=== PATIENT | female | born 1970 | race Caucasian/White ===

== ENCOUNTER → 2017-08-06 | Outpatient (CLI) | payer OTHER, SELFPAY | PROVIDERS: Visit Provider Surgery | DX: R10.11 Right upper quadrant pain (principal); K82.9 Disease of gallbladder, unspecified; Z01.818 Encounter for other preprocedural examination | CPT/HCPCS: 74247 ==

== ENCOUNTER 2017-08-13 09:07 | Day surgery (SDC) | payer OTHER, SELFPAY | END 2017-08-13 14:52 | disposition home or self-care (01) | PROVIDERS: Family Provider Internal Medicine Adolescent Medicine; Visit Provider Surgery | DX: K81.1 Chronic cholecystitis (principal) | CPT/HCPCS: 47562; 82962; 96375; J2405 ==

== ENCOUNTER → 2017-12-27 13:48 | Outpatient (CLI) | payer OTHER, SELFPAY ==
--- NOTE | 2017-12-27 | XR_ITS ---
XR foot RT min 3V HISTORY: Pain following injury ITS.REASON: FALL..PAIN TO 3RD TARSAL ORDERING PHYSICIAN: Zeina Reyez MD PATIENT AGE: 47 years COMPARISON: None FINDINGS: No fracture or dislocation. No lytic or blastic change. There is normal mineralization.. The joint spaces are well-preserved. No significant degenerative/arthritic changes. No erosive changes evident. IMPRESSION: Negative, no acute finding
== END ==
PROVIDERS: PCP Family Medicine; Visit Provider Family Medicine
DX: M79.671 Pain in right foot (principal)
CPT/HCPCS: 73630

== ENCOUNTER → 2018-09-09 08:32 | Outpatient (CLI) | payer OTHER, SELFPAY ==
[2018-09-09 09:00] LABS: Blood Urea Nitrogen 15 mg/dL (7-18); Creatinine,Serum 0.76 mg/dL (0.55-1.02); Estimated Glomerular Filt Rate 82 ml/min (>60); GFR (African American) 99 ML/MIN (>60)
--- NOTE | 2018-09-09 09:45 | CT_ITS ---
CT abdomen wo/w con CLINICAL INDICATION: Right upper quadrant pain, elevated pancreatic enzymes, follow-up renal cysts ITS.REASON: RUQ PAIN ORDERING PHYSICIAN: Zeina Reyez MD PATIENT AGE: 48 years COMPARISON: 5 and 417 TECHNIQUE: Axial images obtained with sagittal and coronal reformats. Pre and post contrast enhanced images are obtained. Post enhanced images are obtained at 30 seconds, 60 seconds, and [address] scans at the facility use one or more dose reduction, viz: automated exposure control, ma/kV adjustment per patient size (including targeted exams where dose is matched to indication, i.e. head), or iterative reconstruction technique. PROCEDURE: Oral Contrast: None IV Contrast: 75 mL of Isovue-370. FINDINGS: There are mild atelectatic changes in the lung bases. Prior cholecystectomy. The liver, spleen, and adrenal glands have an unremarkable appearance. No pancreatic mass or peripancreatic fluid collection is evident. No pancreatic duct dilatation. There are bilateral renal cysts measuring up to 6 cm in the lower pole on the right and 4 cm in the upper pole on the left. The cysts have increased in size compared to the previous study. Previously the largest cyst on the right was 4.9 cm cm and the largest cyst on the left was 2 cm. No hydronephrosis. No renal calculi. The pelvis is not included in the exam. Sclerosis of the SI joints on both sides IMPRESSION: 1. Unremarkable appearing pancreas. 2. Bilateral renal cysts which have slightly increased in size 3. No acute finding
--- NOTE | 2018-09-09 10:13 | HMH.ITSHM ---
Current Home Medications as stated by this patient Arlen Zavala or outside energy sales representatives. []LISINOPRIL,VICTOZA,AMLODIPINE,METFORMIN
== END ==
PROVIDERS: Visit Provider Family Medicine
DX: R10.11 Right upper quadrant pain (principal)
CPT/HCPCS: 36415; 74170; 82565; 84520; Q9967

== ENCOUNTER → 2019-01-10 08:28 | Outpatient (CLI) | payer OTHER, SELFPAY ==
--- NOTE | 2019-01-10 08:32 | MM_ITS ---
MM Dig screening mamm BI w/CAD CAD Screening COMPARISON: Digital mammograms with CAD 06/21/2017 INDICATION: There is no personal or family history of breast cancer TECHNIQUE: Standard CC and MLO images were obtained. R2 CAD reviewed. FINDINGS: There is a diffusely dense and heterogenic parenchymal pattern lessening the sensitivity of mammography. There are scattered benign-appearing microcalcifications in each breast. There is a stable benign-appearing nodular density deep within the right breast. There is no suspicious lesion and there are no suspicious microcalcifications. IMPRESSION: Dense parenchymal pattern with no suspicious lesion seen BI-RADS Category: 2 Benign Finding(s) RECOMMENDED FOLLOW-UP: 1YR - 1 YEAR FOLLOW-UP (A letter has been sent to the patient regarding results of the study.)
== END ==
PROVIDERS: PCP Family Medicine; Visit Provider Family Medicine
DX: Z12.31 Encounter for screening mammogram for malignant neoplasm of breast (principal); N60.19 Diffuse cystic mastopathy of unspecified breast
CPT/HCPCS: 77067

== ENCOUNTER → 2020-02-20 10:04 | Outpatient (CLI) | payer OTHER, SELFPAY ==
--- NOTE | 2020-02-20 10:09 | MM_ITS ---
PROCEDURE: MM DIG SCREENING MAMM BI W/CAD Digital Breast Tomosynthesis Included CLINICAL INDICATION: SCREENING There is no personal or family history of breast cancer COMPARISON: [id number] DIG MAMM-DX UNI A/VW-RT W/CAD from 12/16/2016 DMDB DIG MAMM-DX OSVALDO W/CAD from 06/21/2017 DIG MAMM-SCREEN OSVALDO from 01/10/2019 TECHNIQUE: Standard CC and MLO images and 3D Tomosynthesis was obtained. R2 CAD reviewed. FINDINGS: Moderate diffuse heterogenic fibroglandular densities are seen in the central portions of both breast. There is a mole marker near the axilla right breast. There are couple of benign-appearing microcalcifications in each breast. There is a stable benign-appearing nodular density deep within the right breast. There also is a stable nodular density near the axillary tail left breast likely a low-lying node. There is no new or suspicious lesion in either breast and no suspicious microcalcifications. IMPRESSION: Moderate heterogenic breast density with no suspicious lesions seen BI-RAD Category: 2 Benign Finding(s) FOLLOW-UP: 1YR 1 Year Follow-up (A letter has been sent to the patient regarding results of the study.) Dictated by: Dr. Jeffry Wesley MD 02/24/2020 12:[address] Jeffry Wesley MD in [place] 02/24/2020 12:39
== END ==
PROVIDERS: PCP Family Medicine; Visit Provider Family Medicine
DX: Z12.31 Encounter for screening mammogram for malignant neoplasm of breast (principal)
CPT/HCPCS: 77063; 77067

== ENCOUNTER 2020-06-01 12:57 | Emergency (ER) | payer OTHER, SELFPAY ==
[2020-06-01 13:19] VITALS: BP 143/99; PULSE 82; RESP 19; TEMP 37.3; O2SAT 98; BMI 31.4
--- NOTE | 2020-06-01 13:46 | HMH.EDUTC ---
[facility] [place] Clinical Impression: Viral syndrome Disposition: Home, Self-Care Condition on Discharge: Good Instructions: DI for Viral Upper Respiratory Infection -- Adult, Preventing the Spread of Coronavirus Discharge Instructions Additional Instructions: *Monitor Temp, Over the counter Motrin or Tylenol as directed/as needed Tylenol every 4 hours and Motrin every 6 hours (as long as your family doctor has told you that you can take it) for fever or pain. and straight to ER if unable to lower temp less than 101.0 after medication given *Warm salt water gargles may help to soothe the throat *Throat Lozenges *Warm fluids like tea with honey may help to soothe the throat *Sleep elevated *Humidifier/Vaporizer Follow up IMMEDIATELY for new or worsening symptoms or no Noticeable improvement over the next 48-72 hours. 911 for difficulty breathing or swallowing You was tested for today for COVID19 your test result should be back in the next 24-48 hours, you may call back later tomorrow evening to see if your test results are back and the result You was given a handout with instructions for Self Quarantine and Self isolation for while you wait on test results and what to do if they are positive Referrals: Zeina Reyez MD [Primary Care Provider] - As needed Time of Disposition: 13:52 Medical Decision Making - Rodney Inquiry Pt receiving controlled substance: No Rodney was queried for this patient: No Vital Signs: 06/01/20 13:19 Temperature 99.2 F Temperature Source Oral Pulse Rate [Radial] 82 Respiratory Rate 19 Blood Pressure [Right Arm] 143/99 H Blood Pressure Mean [Right Arm] 113 Blood Pressure Source [Right Arm] Automatic Cuff Blood Pressure Position [Right Arm] Sitting 02 Sat by Pulse Oximetry 98 Oxygen Delivery Method Room Air Orders (Tests/Meds): ORDERS Category Date Time Status Covid-19 Nasal PCR Sendout [facility] 06/01/20 13:45 Received [facility] - General Stated complaint: weakness,Headache,muscle pain,Diarrhea,abdpain Time Seen by Provider: 06/01/20 13:46 Mode of Arrival: Ambulatory Source of Information: Patient Limitations: No Limitations Description of Symptoms (Recalled from Triage Doc. by RN): BODY ACHES, FEVER HEADACHE, SINCE WEDNESDAY HEENT Symptoms (Recalled from RN notes): Yes Resp Symptoms (Recalled from RN notes): No Skin Symptoms (Recalled from RN notes): No MS Symptoms (Recalled from RN notes): No Functional Status (Recalled from RN notes): WNL - History of Present Illness Provider Complaint: Patient states that over the last week she has been having body aches, chills low grade fever, clear nasal drainage States that she feels like she may have the flu States that she was concerned she may have been exposed to COVID but unsure States that today she was still feeling bad so she come in to get tested States that she is not having any abdominal pain but did have some cramping when she had diarrhea yesterday - Related Data Home Medications Medication Instructions Recorded Confirmed amlodipine 5 mg tablet 5 mg PO DAILY 09/15/18 09/18/19 atorvastatin 20 mg tablet 20 mg PO DAILY 09/15/18 09/18/19 fluticasone 250 mcg-salmeterol 50 1 inh INHALATION BID 09/15/18 09/18/19 mcg/dose blistr powdr for inhalation liraglutide 0.6 mg/0.1 mL (18 mg/3 1.2 mg SQ DAILY ml 09/15/18 09/18/19 mL) subcutaneous pen injector lisinopril 20 1 tab PO DAILY 09/15/18 09/18/19 mg-hydrochlorothiazide 25 mg tablet metformin 500 mg tablet 500 mg PO BID 09/15/18 09/18/19 albuterol sulfate 90 mcg/actuation INHALATION 09/18/19 09/18/19 aerosol inhaler lisinopril 40 mg tablet PO 09/18/19 09/18/19 pen needle, diabetic 31 gauge x See Rx Instructions .ROUTE 09/18/19 09/18/1916 .MEDSUPPLY #1,200 each Previous Rx's Medication Instructions Recorded Ondansetron [Ondansetron Odt 8mg 8 mg PO TID PRN 10 Days #30 tab 09/22/19 Tab] Allergies Allergy/AdvReac Type Amalia
[2020-06-01 14:03] VITALS: BP 143/99; PULSE 82; RESP 19; TEMP 37.3; O2SAT 98
[2020-06-01 14:22] LABS: UTC Influenza A Antigen Negative (Negative)
[2020-06-01 14:24] LABS: UTC Influenza B Antigen Negative (Negative)
[2020-06-02 09:34] LABS: Covid-19 Nasal PCR Sendout UK Detected
--- NOTE | 2020-06-02 09:39 | PC.NURSE ---
Patient notified of positive COVID results. Educated on strict quarantine.
== END 2020-06-01 14:04 | disposition home or self-care (01) ==
PROVIDERS: Emergency Provider Nurse Practitioner; PCP Family Medicine
DX: U07.1 COVID-19 (principal); B34.9 Viral infection, unspecified; E11.9 Type 2 diabetes mellitus without complications; I10 Essential (primary) hypertension; E78.5 Hyperlipidemia, unspecified; J45.909 Unspecified asthma, uncomplicated; Z79.899 Other long term (current) drug therapy; Z90.49 Acquired absence of other specified parts of digestive tract; Z90.710 Acquired absence of both cervix and uterus
CPT/HCPCS: 87804; 99201; U0003

== ENCOUNTER → 2020-08-06 14:35 | Outpatient (CLI) | payer OTHER, SELFPAY ==
--- NOTE | 2020-08-06 14:39 | US_ITS ---
PROCEDURE: US KIDNEY CLINICAL INDICATION: RENAL CYST COMPARISON: No exams were available for comparison FINDINGS: The right kidney is [id number]. No hydronephrosis, cortical thinning, or renal mass or perinephric fluid collection is evident. The left kidney is [id number]. No hydronephrosis, cortical thinning, or renal mass or perinephric fluid collection is evident. There are bilateral renal cyst. At least 3 cysts on the right the largest measuring 5 cm. This is in the mid upper pole. Additional cyst in the upper pole at 2 cm and a cyst in the lower pole at 2 cm. On the left there is a 4.9 cm cyst in the upper pole. IMPRESSION: Bilateral renal cysts. No hydronephrosis Dictated by: Waqas Mcelroy MD 08/06/2020 17:17 Waqas Mcelroy MD in [place] 08/06/2020 17:17
== END ==
PROVIDERS: PCP Family Medicine; Visit Provider Family Medicine
DX: N28.1 Cyst of kidney, acquired (principal)
CPT/HCPCS: 76770

== ENCOUNTER → 2021-03-14 16:04 | Outpatient (CLI) | payer OTHER, SELFPAY ==
--- NOTE | 2021-03-14 16:06 | MM_ITS ---
PROCEDURE: MM DIG SCREENING MAMM BI W/CAD Digital Breast Tomosynthesis Included CLINICAL INDICATION: SCREENING The COMPARISON: US BR US BREAST-RT COMPLETE W/AXILLA from 12/16/2016 MG DMDB DIG MAMM-DX OSVALDO W/CAD from 06/21/2017 MG DIG MAMM-SCREEN OSVALDO from 01/10/2019 MG MM DIG SCREENING MAMM BI W/CAD from 02/20/2020 TECHNIQUE: Standard CC and MLO images and 3D Tomosynthesis was obtained. R2 CAD reviewed. FINDINGS: Average fibroglandular tissue. No malignant appearing mass or malignant-appearing microcalcification. No skin skin thickening or architectural distortion. There are bilateral benign-appearing calcifications in scattered asymmetric fibroglandular elements. No significant change IMPRESSION: Benign findings BI-RAD Category: 2 Benign Finding FOLLOW-UP: 1 YR 1 Year Follow-up (A letter has been sent to the patient regarding results of the study.) Dictated by: Waqas Mcelroy MD 03/21/2021 18:12 Waqas Mcelroy MD in [place] 03/21/2021 18:12
== END ==
PROVIDERS: PCP Family Medicine; Visit Provider Family Medicine
DX: Z12.31 Encounter for screening mammogram for malignant neoplasm of breast (principal)
CPT/HCPCS: 77063; 77067

== ENCOUNTER → 2021-09-01 14:51 | Outpatient (CLI) | payer OTHER, SELFPAY ==
--- NOTE | 2021-09-01 14:56 | XR_ITS ---
FINAL REPORT CLINICAL HISTORY: CONTUSION OF RT CHEST WALL, INITIAL ENCOUNTER COMPARISON: July 23, 2017 FINDINGS: Two views of the chest were obtained. The heart size and pulmonary vascularity are within normal limits. The mediastinum is normal. There is mild bibasilar atelectasis or scarring. There is no pneumothorax. The bony thorax is intact. IMPRESSION: Mild bibasilar atelectasis or scarring. Reviewed, Interpreted and Dictated by Paul Mckinnon III, MD Transcribed by Medhat Mahoney Authenticated by Paul Mckinnon III, MD on 09/01/2021 04:14:04 PM [facility]
--- NOTE | 2021-09-01 14:56 | XR_ITS ---
FINAL REPORT CLINICAL HISTORY: CONTUSION OF RT CHEST WALL, INITIAL ENCOUNTER FINDINGS: 3 views of the right ribs were obtained. There is no acute fracture. The visualized lungs are clear. No pneumothorax is identified. IMPRESSION: No rib fracture or pneumothorax identified. Reviewed, Interpreted and Dictated by Paul Mckinnon III, MD Transcribed by Medhat Mahoney Authenticated by Paul Mckinnon III, MD on 09/01/2021 04:14:02 PM [facility]
== END ==
PROVIDERS: PCP Family Medicine; Visit Provider Family Medicine
DX: S20.211A Contusion of right front wall of thorax, initial encounter (principal)
CPT/HCPCS: 71046; 71100

== ENCOUNTER → 2022-04-04 11:26 | Outpatient (CLI) | payer OTHER, SELFPAY ==
[2022-04-03 19:11] LABS: Anion Gap 14.7 mEq/L (5-15); Blood Urea Nitrogen 19 mg/dl (7-17); Carbon Dioxide 26 mmol/L (22.0-30.0); Chloride 101 mmol/L (98-107); Estimated Glomerular Filt Rate 106 ml/min (>60); GFR (African American) 129 ML/MIN (>60); Glucose 173 mg/dl (74-100); Potassium 3.7 mmoL/L (3.5-5.1); Sodium 138 mmol/L (136-145)
[2022-04-03 19:42] LABS: Thyroid Stimulating Hormone 0.46 uIU/mL (0.465-4.68)
[2022-04-03 21:51] LABS: Basophils # 0.2 K/mm3 (0-0.2); Basophils % 2.2 % (0.1-2.0); Eosinophils # 0.3 K/mm3 (0.0-0.4); Eosinophils % 4.2 % (0.1-12.0); Hematocrit 46.1 % (37.0-47.0); Hemoglobin 14.5 g/dL (12.2-16.2); Lymphocytes # 1.6 K/mm3 (0.7-4.5); Lymphocytes % 20.8 % (10-50); Mean Corpuscular HGB Conc 31.5 g/dL (31.8-35.4); Mean Corpuscular Hemoglobin 29.3 pg (27.0-31.2); Mean Platelet Volume 10.4 fl (7.4-10.4); Monocytes # 0.6 K/mm3 (0.1-1.0); Monocytes % 7.5 % (1.7-9.3); Neutrophils % 65.4 % (37.0-80.0); Platelet Count 341 K/mm3 (142-424); Red Blood Count 4.95 M/mm3 (4.20-5.40); Red Cell Distribution Width 13.4 % (11.5-17.5); White Blood Count 7.7 K/mm3 (4.8-10.8)
== END ==
LOC: LAB.DROPOF 11:30
PROVIDERS: PCP Family Medicine; Visit Provider Family Medicine
DX: E11.9 Type 2 diabetes mellitus without complications (principal); Z79.84 Long term (current) use of oral hypoglycemic drugs
CPT/HCPCS: 80048; 84443; 85025

== ENCOUNTER → 2022-04-16 08:06 | Outpatient (CLI) | payer OTHER, SELFPAY ==
--- NOTE | 2022-04-16 08:07 | MM_ITS ---
PROCEDURE INFORMATION: Exam: MG Bilateral Screening 3D Mammography Exam date and time: 04/16/2022 8:13 AM Age: 51 years old Clinical indication: Screening examination TECHNIQUE: Imaging protocol: Bilateral Screening tomosynthesis and 2D mammography including computer-aided detection (CAD) when performed. COMPARISON: 1. MG MM DIG SCREENING MAMM BI W/CAD 03/14/2021 4:03 PM 2. MG MM DIG SCREENING MAMM BI W/CAD 02/20/2020 10:28 AM FINDINGS: MAMMOGRAPHY: Breast composition: The breasts are heterogeneously dense, which may obscure small masses. Mass: None. Architectural distortion: None. Calcifications: No suspicious calcifications. Asymmetric density: None. Skin thickening: None. Axillary adenopathy: None. IMPRESSION: No mammographic evidence of malignancy. Annual screening is recommended unless otherwise clinically indicated. ASSESSMENT: BI-RADS Category 1: Negative
== END ==
PROVIDERS: PCP Family Medicine; Visit Provider Family Medicine
DX: Z12.31 Encounter for screening mammogram for malignant neoplasm of breast (principal)
CPT/HCPCS: 77063; 77067

== ENCOUNTER 2022-06-01 11:21 | Emergency (ER) | payer OTHER, SELFPAY ==
[2022-06-01 12:07] VITALS: BP 162/98; PULSE 69; RESP 16; TEMP 36.9; O2SAT 99; BMI 33.2
--- NOTE | 2022-06-01 12:11 | EXP.UTC ---
Discharge Plan Disposition Patient Disposition: Hospice - Medical Facility Condition: Good Prescriptions Prescriptions: New doxycycline monohydrate [doxycycline monohydrate] 100 mg tablet 100 mg PO Q12 10 Days Qty: 20 0RF mupirocin 2 % ointment 1 applic topical TID 7 Days Qty: 1 0RF No Action (DME) pen needle, diabetic 31 gauge x 5/16 needle See Rx Instructions .ROUTE .MEDSUPPLY Qty: 1,200 Rx Instructions: As directed albuterol sulfate 90 mcg/actuation HFA aerosol inhaler INHALATION Jardiance 10 mg tablet 10 mg PO DAILY Victoza 2-Drake 0.6 mg/0.1 mL (18 mg/3 mL) pen injector 1.2 mg SQ DAILY Qty: 6 2RF metformin 500 mg tablet 500 mg PO BID lisinopril-hydrochlorothiazide 20-25 mg tablet 1 tab PO DAILY atorvastatin 20 mg tablet 20 mg PO DAILY Advair Diskus 250-50 mcg/dose blister with device 1 inh INHALATION BID Referrals Follow up/Referrals: Zeina Reyez MD [Primary Care Provider] - See instructions Activity Restrictions/Add. Instructions Additional Instructions/Restrictions: Keep the wound clean and dry. Watch the for signs of infection, such as redness, swelling, drainage, fever. etc. Take tylenol or ibuprofen for pain. Follow up with your regular doctor. GO TO THE ER FOR ANY WORSENING SYMPTOMS OR CONCERNS. Clinical Impressions Clinical Impression: Tick bite of back Instructions Patient Instructions: DI for Cellulitis -- Adult Discharge ED Provider: Yrn Escalera [facility] General Stated complaint: tick imbedded in back few days ago Mode of Arrival: Ambulatory Source of Information: Patient Limitations: No Limitations Time Seen by Provider: 06/01/22 12:10 HEENT Symptoms (Recalled from RN notes): No Resp Symptoms (Recalled from RN notes): No Skin Symptoms (Recalled from RN notes): Yes MS Symptoms (Recalled from RN notes): No Functional Status (Recalled from RN notes): n/a History of Present Illness Provider Complaint: She comes in for tick head removal. She states she does not know when she was bitten, but this morning her noticed it and tried to remove it, but pt states she thinks that the head is stuck Related Data Home Medications Medication Instructions Recorded Confirmed atorvastatin 20 mg tablet 20 mg PO DAILY 09/15/18 05/19/22 fluticasone 250 mcg-salmeterol 50 1 inh inhalation BID 09/15/18 05/19/22 mcg/dose blistr powdr for inhalation (Advair Diskus) lisinopril 20 1 tab PO DAILY 09/15/18 05/19/22 mg-hydrochlorothiazide 25 mg tablet metformin 500 mg tablet 500 mg PO BID 09/15/18 05/19/22 albuterol sulfate 90 mcg/actuation inhalation 09/18/19 05/19/22 aerosol inhaler pen needle, diabetic 31 gauge x #1,200 ea 09/18/19 05/19/22 5/16 empagliflozin 10 mg tablet 10 mg PO DAILY 04/03/22 05/19/22 (Jardiance) Previous Rx's Medication Instructions Recorded liraglutide 0.6 mg/0.1 mL (18 mg/3 1.2 mg (0.2 mL) SQ DAILY type 2 04/03/22 mL) subcutaneous pen injector diabetes #6 mL (Victoza 2-Drake) doxycycline monohydrate 100 mg 100 mg PO Q12 10 days #20 tabs 06/01/22 tablet mupirocin 2 % topical ointment 1 applic topical TID 7 days #1 g 06/01/22 Allergies Allergy/AdvReac Type Severity Reaction Status Date / Time estrogens, conjugated Allergy Mild DOESN'T Verified 06/01/22 12:10 [From PREMARIN] AGREE WITH MY BODY progesterone [PROGESTERONE] Allergy Unknown Verified 06/01/22 12:10 tioconazole Allergy Unknown Verified 06/01/22 12:10 [From MONISTAT 1 (TIOCONAZOLE)] miconazole [From MONISTAT 7] AdvReac Mild ULCERS IN Verified 06/01/22 12:10 VAGINA Worker's Comp Is this a Worker's Comp case?: No PFSH PFSH Medical History Diabetes mellitus Gastroenteritis Hypertension Surgical History History of bladder repair surgery History of
[2022-06-01 13:25] VITALS: BP 162/98; PULSE 69; RESP 16; TEMP 36.9
== END 2022-06-01 13:27 | disposition hospice, inpatient (51) ==
PROVIDERS: Emergency Provider Nurse Practitioner Family; PCP Family Medicine
DX: S20.469A Insect bite (nonvenomous) of unspecified back wall of thorax, initial encounter (principal)
CPT/HCPCS: 10120; 99212; G0463

== ENCOUNTER → 2022-08-25 14:45 | Outpatient (CLI) | payer OTHER, SELFPAY ==
[2022-08-25 19:23] LABS: Microalbumin/Creatinine Ratio 37.9
[2022-08-25 19:24] LABS: Creatinine,Urine Random 63 mg/dL (Not Estab.)
[2022-08-25 19:25] LABS: Chloride 101 mmol/L (98-107)
[2022-08-25 19:26] LABS: Potassium 3.7 mmoL/L (3.5-5.1); Sodium 138 mmol/L (136-145)
[2022-08-25 19:28] LABS: Alanine Aminotransferase 39 U/L (12-78); Aspartate Amino Transferase 29 U/L (14-36); Blood Urea Nitrogen 18 mg/dl (7-17); Estimated Glomerular Filt Rate 89 ml/min (>60); GFR (African American) 107 ML/MIN (>60)
[2022-08-25 19:29] LABS: Albumin Level 4.3 g/dl (3.5-5.0); Albumin/Globulin Ratio 1.2 (1.1-1.8); Alkaline Phosphatase 130 U/L (38-126); Anion Gap 12.7 mEq/L (5-15); Bilirubin,Total 0.3 mg/dl (0.2-1.3); Calcium 9.6 mg/dl (8.4-10.2); Carbon Dioxide 28 mmol/L (22.0-30.0); Globulin 3.5 g/dL (1.3-3.2); Glucose 148 mg/dl (74-100); Total Protein,Serum 7.8 g/dl (6.3-8.2)
== END ==
LOC: LAB.DROPOF 08-26 06:41
PROVIDERS: PCP Family Medicine; Visit Provider Family Medicine
DX: E11.9 Type 2 diabetes mellitus without complications (principal); Z79.84 Long term (current) use of oral hypoglycemic drugs
CPT/HCPCS: 80053; 82043; 82570

== ENCOUNTER → 2022-09-08 15:17 | Outpatient (CLI) | payer OTHER, SELFPAY ==
--- NOTE | 2022-09-08 15:24 | US_ITS ---
FINAL REPORT TECHNIQUE: Ultrasound images of the kidneys and bladder were obtained. CLINICAL HISTORY: .rt side pain-- hx of cysts COMPARISON: 08/06/2020 FINDINGS: The right kidney measures 11.9 cm in length. It is normal in echogenicity. There is no hydronephrosis. The left kidney measures 11.7 cm in length. It is normal in echogenicity. There is no hydronephrosis. There are bilateral renal cysts, right more extensive than left. There is an upper pole right renal cyst measuring up to 4.6 cm, previously measured 5 cm. No solid mass lesion is identified. No evidence of obstruction. IMPRESSION: Redemonstration of renal cystic disease, greater on the right. Reviewed, Interpreted and Dictated by Zeina Lord MD Transcribed by Merissa Murillo Authenticated and [facility]
== END ==
LOC: RAD 15:18
PROVIDERS: PCP Family Medicine; Visit Provider Family Medicine
DX: E11.9 Type 2 diabetes mellitus without complications (principal); Z79.84 Long term (current) use of oral hypoglycemic drugs
CPT/HCPCS: 76770

== ENCOUNTER → 2022-09-11 13:22 | Outpatient (CLI) | payer OTHER, SELFPAY ==
[2022-09-11 18:03] LABS: Chloride 102 mmol/L (98-107)
[2022-09-11 18:04] LABS: Potassium 4.2 mmoL/L (3.5-5.1); Sodium 140 mmol/L (136-145)
[2022-09-11 18:07] LABS: Anion Gap 14.2 mEq/L (5-15); Blood Urea Nitrogen 17 mg/dl (7-17); Calcium 9.6 mg/dl (8.4-10.2); Carbon Dioxide 28 mmol/L (22.0-30.0); Estimated Glomerular Filt Rate 76 ml/min (>60); GFR (African American) 92 ML/MIN (>60); Glucose 126 mg/dl (74-100)
== END ==
PROVIDERS: PCP Family Medicine; Visit Provider Family Medicine
DX: E03.9 Hypothyroidism, unspecified (principal); E11.9 Type 2 diabetes mellitus without complications; Z79.84 Long term (current) use of oral hypoglycemic drugs
CPT/HCPCS: 80048; 84443

== ENCOUNTER → 2023-06-15 13:25 | Outpatient (CLI) | payer BC, SELFPAY ==
--- NOTE | 2023-06-15 13:32 | MM_ITS ---
PROCEDURE INFORMATION: Exam: MG Bilateral Screening 3D Mammography Exam date and time: 06/15/2023 1:22 PM Age: 52 years old Clinical indication: Screening examination; No personal or family history of breast cancer TECHNIQUE: Imaging protocol: Bilateral Screening tomosynthesis and 2D mammography including computer-aided detection (CAD) when performed. COMPARISON: 1. MG MM DIG SCREENING MAMM BI W/CAD 04/16/2022 8:13 AM 2. MG MM DIG SCREENING MAMM BI W/CAD 03/14/2021 4:03 PM 3. MG MM DIG SCREENING MAMM BI W/CAD 02/20/2020 10:28 AM FINDINGS: MAMMOGRAPHY: Breast composition: The breasts are heterogeneously dense, which may obscure small masses. Mass: No suspicious masses. Architectural distortion: No suspicious distortion. Calcifications: No suspicious calcifications. Asymmetric density: None. Skin thickening: None. Axillary adenopathy: None. IMPRESSION: No mammographic evidence of malignancy. Annual screening is recommended unless otherwise clinically indicated. ASSESSMENT: BI-RADS Category 1: Negative
== END ==
PROVIDERS: PCP Family Medicine; Visit Provider Family Medicine
DX: Z12.31 Encounter for screening mammogram for malignant neoplasm of breast (principal)
CPT/HCPCS: 77063; 77067

== ENCOUNTER → 2023-06-25 09:53 | Outpatient (CLI) | payer BC, SELFPAY ==
--- NOTE | 2023-06-25 09:56 | US_ITS ---
FINAL REPORT CLINICAL HISTORY: RENAL CYST COMPARISON: 09/08/2022 FINDINGS: RENAL ULTRASOUND Ultrasound images of the kidneys were obtained. Limited images of the liver parenchyma demonstrates normal echogenicity. The right kidney measures 12.1 cm in length. There is no renal stone or hydronephrosis. There are multiple cysts. The largest measures 5.1 cm. The left kidney measures 12.3 cm in length. There is no renal stone or hydronephrosis. There are multiple cysts. The largest measures 5.4 cm and has a septation. IMPRESSION: Bilateral renal cysts. The left renal cyst is complex. 6-month follow-up is recommended. Reviewed, Interpreted and Dictated by Trisha Bourgeois MD Transcribed by Edelmira Rodriguez Authenticated and [facility]
== END ==
LOC: RAD 09:53
PROVIDERS: PCP Family Medicine; Visit Provider Family Medicine
DX: N28.1 Cyst of kidney, acquired (principal)
CPT/HCPCS: 76770

== ENCOUNTER 2024-07-10 14:00 | Outpatient (CLI) | payer BC, SELFPAY ==
--- NOTE | 2024-07-10 14:05 | US_ITS ---
FINAL REPORT TECHNIQUE: Multiple sonographic images of the kidneys were obtained in the longitudinal and transverse planes. CLINICAL HISTORY: BILAT FLANK PAIN-- PT HAD CYSTS REMOVED 03/29/24 COMPARISON: 06/25/2023 FINDINGS: The right kidney measures 11 cm in [id number] length. There is a right upper pole cyst, measuring 3.8 cm, was 3.1 on the prior exam. The larger cyst seen on the prior exam is no longer seen. Cortical echogenicity and cortical thickness are within normal limits. No hydronephrosis or stones are seen. The left kidney measures 11.7 cm in [id number] length. There is a left upper pole cyst, measuring 2.1 cm in size, was previously 5.3 cm in size. Cortical echogenicity and cortical thickness are within normal limits. No hydronephrosis or stones are seen. IMPRESSION: Bilateral renal cysts. There has been interval resolution of one of the right renal cysts since the prior exam, and a marked decrease in size of the left renal cyst. Reviewed, Interpreted and Dictated by Trisha Bourgeois MD Transcribed by Laura Garza Authenticated and . [facility]
== END 2024-07-10 23:59 | disposition home or self-care (01) ==
LOC: RAD 14:02
PROVIDERS: PCP Family Medicine; Visit Provider Family Medicine
DX: N28.1 Cyst of kidney, acquired (principal)
CPT/HCPCS: 76770

== ENCOUNTER 2024-11-15 07:56 | Outpatient (CLI) | payer BC, SELFPAY ==
--- NOTE | 2024-11-15 | MM_ITS ---
PROCEDURE INFORMATION: Exam: MG Bilateral Screening 3D Mammography Exam date and time: 11/15/2024 8:07 AM Age: 54 years old Clinical indication: Screening examination TECHNIQUE: Imaging protocol: Bilateral Screening tomosynthesis and 2D mammography including computer-aided detection (CAD) when performed. COMPARISON: 1. MG MM DIG SCREENING MAMM BI W/CAD 06/15/2023 1:22 PM 2. MG MM DIG SCREENING MAMM BI W/CAD 04/16/2022 8:13 AM FINDINGS: MAMMOGRAPHY: Breast composition: The breasts are heterogeneously dense, which may obscure small masses. Mass: No suspicious masses. Architectural distortion: None. Calcifications: No suspicious calcifications. Asymmetric density: None. Skin thickening: None. Axillary adenopathy: None. IMPRESSION: No mammographic evidence of malignancy. Annual screening is recommended unless otherwise clinically indicated. ASSESSMENT: BI-RADS Category 1: Negative.
== END 2024-11-15 23:59 | disposition home or self-care (01) ==
LOC: RAD 07:56
PROVIDERS: PCP Family Medicine; Visit Provider Family Medicine
DX: Z12.31 Encounter for screening mammogram for malignant neoplasm of breast (principal)
CPT/HCPCS: 77063; 77067

== ENCOUNTER 2025-02-26 13:30 | Outpatient (CLI) | payer BC, SELFPAY ==
--- OUTSIDE RECORDS SUMMARY | 2024-09-29 07:30 | XMS_ITS ---
Author Organization [facility] Address [address] [id number] Care Team Providers Care Traffic Warehouse Supervisor Name Role Phone Priya Reyez Primary Care Provider [phone] Allergies Allergen (clinical drug ingredient) Drug/Non Drug Allergy documented on EMR Reaction Allergy Type Onset Date Status Monistat 7 Complete Therapy Unknown Drug Allergy Active REASON FOR VISIT 3 week f/u Medications Medication SIG (Take, Route, Frequency, Duration) Notes Start Date End Date Status Trulicity 0.75 MG/0.5ML as directed Subcutaneous 0 09/04/2024 Active ProAir Digihaler 108 (90 Base) MCG/ACT 2 puff(s) inhaled 4 times a day 04/22/2021 Active Tresiba 100 UNIT/ML 22 units Subcutaneou s each morning Active CoQ10 100 MG orally once a day Active Atorvastatin Calcium 20 MG 1 tab(s) orally once a day; Duration: 30 days Active metFORMIN HCl ER 500 MG 1 tablet with ev ening meal Orally twice a day Active Doxazosin Mesylate 1 MG 1 tablet Orally At Bed Time; Duration: 30 day(s) 07/29/2023 Not-Taking Ozempic (0.25 or 0.5 MG/DOSE) 2 MG/3ML 0.5mg Subcutaneous 07/03/2024 Not- Taking amLODIPine Besylate 5 MG 1 tablet Orally Two times a day 07/01/2023 Not-Taking FreeStyle Rex 2 Sensor - USE DIRECTED CHANGE SENSOR EVERY 14 DAYS; Duration: 28 Active Lisinopril-hydroCHLOROth iazide 20-25 MG 1 tab(s) orally each AM A ctive Wixela Inhub 250-50 MCG/ACT USE ONE INHALATION TWICE DAILY; Duration: 30 Active Problems Problem Type SNOMED Code ICD Code Onset Dates Problem Status W/U Status Risk Notes Problem Diabetic renal disease (456265640) Type 2 diabetes mellitus with diabetic chronic kidney disease (E11.22) Active confirmed Problem Long-term current use of insulin (218951347) long term (current) use of insulin (Z79.4) Active confirmed Problem Diabetic renal disease (575343056) Type 2 diabetes mellitus with other diabetic kidney complication (E11.29) Active confirmed Vital Signs Weight 185.6 lbs 09/29/2024 Blood pressure systolic 130 mm Hg 09/29/19 25 Blood pressure diastolic 84 mm Hg 025 Heart Rate 79 /min 09/29/2024 Height 60 in 09/29/2024 BMI 36.24 kg/m2 09/29/2024 Encounters Encounter Location Date Provider Diagnosis [facility] [address] [place] [id number] 09/29/2024 Priya Reyez Type 2 diabetes mellitus with diabetic chronic kidney disease E11.22 ; half-way (current) use of insulin Z79.4 ; Type 2 diabetes mellitus with other diabetic kidney complication E11.29 and Proteinuria, unspecified R80.9 Assessments Encounter Date Diagnosis (ICD Code) Assessment Notes Treatment Notes Treatment Clinical Notes Section Notes 09/29/2024 Type 2 diabetes mellitus with diabetic chronic kidney disease (ICD-10 - E11.22) continue current therapy 09/29/2024 half-way (current) use of insulin (ICD-10 - Z79.4) 09/29/2024 Type 2 diabetes mellitus with other diabetic kidney complication (ICD-10 - E11.29) 09/29/2024 Proteinuria, unspecified (ICD-10 - R80.9) Plan Of Treatment Treatment Notes Assessment Notes Type 2 diabetes mellitus wit h diabetic chronic kidney disease continue current therapy Next Appt Details Follow Up: 4 Weeks, Reason: Provider Name:Priya Busby er, 06/22/2025 10:00:00 AM, [address], [address], [place], [id number], Progress Notes * SHANNAN ZAVALA:1970 ([age] yo F)Acc No.[id number]:09/29/2024 Patient: ANJU YOUNG Provider: Priya Reyez M.D. :1970 A ge:54 Y S ex:Female Date:09/29/2024 Address:[address] [place] [address] Subjective: * Chief Complaints: * 1 . 3 week f/u. * HPI: E ndocrinology: The pt is here for a 3 week follow up on elevated glucoses. Pt states her glucose has been doing much better. she states she did see Endocrinology Letitia Huitron she put her on Insulin. See 09/28/24 note. Tresiba was started at 18 unit and raise two units until she was at normal levels. She is now at 22 units every morning and her average glucose has been at 129. Pt states she will go above 150 after eating but it will come back down. Pt states her kidneys are doing good. Pt states endocrinology did a GFR and it was elevated. Was on Humalog briefly. 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 Possibility of coming off insulin. * ROS: D ERMATOLOGY: no R dayana. n o H mica. G ASTROENTEROLOGY: no N ausea. n o V omiting. n o D iarrhea.? U ROLOGY: no D ifficulty urinating. n o B lood in urine. * Medical History: H ypertension, Type 2 diabetes, Asthma, Dialated eye exam 2017, Mammogram 05/2023. * Surgical History: C section 06/27/2008, hysterectomy, abdominal 2014, bladder suspension with hysterectomy , cholecystectomy, Dr. Wynne 07/2017, eye surgery, [facility] Dr. Lockett 2002, myomectomy 2005, Bilateral renal cyst removal 03/28/24. * Hospitalization/Major Diagno stic Procedure: [facility]- fever, muscle pain, and headache: COVID positive 06/01/2020. * Family History: F ather: . M other: alive, diagnosed with Hypertension. 3 brother(s) , 1 sister(s) . 1 son(s) . . Father of renal disease, probable diabetic. * Social History: C URRENT TOBACCO USE: No . M arital Status: . Past smoking status: never smoked. * Medications: T aking metFORMIN HCl ER 500 MG Tablet Extended Release 24 Hour 1 tablet with evening meal Orally twice a day , Taking Tresiba 100 UNIT/ML Solution 22 units Subcutaneous each morning , Taking Trulicity 0.75 MG/0.5ML Solution Auto-injector as directed Subcutaneous , Taking ProAir Digihaler 108 (90 Base) MCG/ACT Aerosol Powder Breath Activated 2 puff(s) inhaled 4 times a day , Taking CoQ10 100 MG Capsule orally once a day , Taking Atorvastatin Calcium 20 MG Tablet 1 tab(s) orally once a day , Taking Lisinopril-hydroCHLOROthiazide 20-25 MG Tablet 1 tab(s) orally each AM , Taking Wixela Inhub 250-50 MCG/ACT Aerosol Powder Breath Activated USE ONE INHALATION TWICE DAILY , Taking FreeStyle Rex 2 Sensor - Miscellaneous USE DIRECTED CHANGE SENSOR EVERY 14 DAYS , Not-Taking Ozempic (0.25 or 0.5 MG/DOSE) 2 MG/3ML Solution Pen-injector 0.5mg Subcutaneous , Not-Taking amLODIPine Besylate 5 MG Tablet 1 tablet Orally Two times a day , Not-Taking Doxazosin Mesylate 1 MG Tablet 1 tablet Orally At Bed Time , Medication List reviewed and reconciled with the patient * Allergies: M onistat 7 Complete Therapy. Objective: * Vitals: W t:185.6, Temp:98.1, BP:130/84, HR:79, Nurse:GO, Ht: 60, BMI:36.24. * Examination: G eneral Examination: General Appearance: N AD. H EENT: u nremarkable.?Oral cavity: masked. N barney: s upple, no lymphadenopathy. C hest: n ormal shape and expansion. H eart: R SR. L ungs: c lear to auscultation. N eurologic Exam: I ntact, gait normal. S kin: n ormal, no rash. . P eripheral pulses:?normal . E xtremities: n o leg edema. * Physical Examination: Drawing:[id number] Assessment: * Assessment: 1. T ype 2 diabetes mellitus with diabetic chronic kidney disease - E11.22 (Primary) 2 . L forrest term (current) use of insulin - Z79.4 3 . T ype 2 diabetes mellitus with other diabetic kidney complication - E11.29 4 . P roteinuria, unspecified - R80.9 Plan: * Treatment: * Procedure Codes: 3 075F SYST BP GE 130 - 139MM HG, 3079F DIAST BP 80-89 MM HG, 3046F HEMOGLOBIN A1C LEVEL > 9.0% * Follow Up: 4 Weeks * Images: Billing Information: * Visit Code: 13541 Office Visit, Est Pt., Level 3. * Procedure Codes: 3075F SYST BP GE 130 - 139MM HG. 3079F DIAST BP 80-89 MM HG. 3046F HEMOGLOBIN A1C LEVEL > 9.0%. * Electronic signature of Priya Reyez MD on 02/26/2025 at 01:38 PM EDT Sign off status: Pending * Provider: Priya Reyez M.D. Date: 09/29/2024 Generated for Omayra leiva/Lashaun/eTransmitting on: 0 02/26/2025 01:38 PM EDT History and Physical Notes * Examination Category Sub-Category Detail Notes Category Not es General Examination HEENT: unremarkable Heart: RSR Lungs: clear to auscultatio n Extremities: no leg edema General Appearance: NAD Skin: normal, no rash. Neurologic Exam: Intact, gait normal Neck: supple, no lymphaden opathy Oral cavity: masked Peripheral pulses: normal Chest: normal shape and exp ansion
--- OUTSIDE RECORDS SUMMARY | 2024-10-27 05:30 | XMS_ITS ---
Author Organization [facility] Address [address] [facility] [address] [place] [id number] Care Team Providers Care Well Puller Name Role Phone Priya Reyez Primary Care Provider Allergies Allergen (clinical drug ingredient) Drug/Non Drug Allergy documented on EMR Reaction Allergy Type Onset Date Status Monistat 7 Complete Therapy Unknown Drug Allergy Active Results Component Value Reference Range Notes Glycohemoglobin A1c (in hous e) Reviewed date:10/31/2024 04:39:43 PM Interpretation:7.4 Performing Lab: Notes/Report: 7.4 glycohemoglobin 7.4% 5 - 6.5 % P-Basic Metabolic Panel (BMP ) Reviewed date:10/31/2024 04:39:43 PM Interpretation:Normal Performing Lab: Notes/Report: Test performed by [facility], [facility] [address] [place] [address] , [address], [place] [address] Hu Mckeon MD, Chief Of Hospital Medicine CLIA: [id number] Sodium 140 135-145 mmol/L Potassium 3.9 3.5-5.3 mmol/L Chloride 101 97-108 mmol/L CO2 27 22-32 mmol/L Glucose 80 65-99 mg/dL BUN 15 6-20 mg/dL Creatinine 0.74 0.50-1.00 mg/dL Calcium 9.8 8.6-10.4 mg/dL eGFR by Creatinine 97 >59 mL/min/1.73m2 REASON FOR VISIT 1 Month Follow Up Medications Medication SIG (Take, Route, Frequency, Duration) Notes Start Date End Date Status FreeStyle Rex 2 Sensor - USE DIRECT ED CHANGE SENSOR EVERY 14 DAYS; Duration: 28 Active Wixela Inhub 250-50 MCG/ACT USE ONE INHALATION TWICE DAILY; Duration: 30 Active Lisinopril-hydroCHLOROthia zide 20-25 MG 1 tab(s) orally each AM Act lukasz Atorvastatin Calcium 20 MG 1 tab(s) oral ly once a day; Duration: 30 days Active CoQ10 100 MG orally once a day Active ProAir Digihaler 108 (90 Base) MCG/ACT 2 puff(s) inhaled 4 times a day 04/22/2021 Active Trulicity 0.75 MG/0.5ML as directed Subcutaneous 0 09/04/2024 Active Tresiba 100 UNIT/ML 22 units Subcutaneou s each morning Active metFORMIN HCl ER 500 MG 1 tab(s) Orally twice a day Active Vital Signs Weight 183.4 lbs 10/27/2024 Blood pressure systolic 130 mm Hg 10/28/19 25 Blood pressure diastolic 80 mm Hg 025 Heart Rate 65 /min 10/27/2024 Height 60 in 10/27/2024 BMI 35.81 kg/m2 10/27/2024 Encounters Encounter Location Date Provider Diagnosis [facility] [address] [facility] [address] [place], [place] [id number] 10/27/2024 Priya Reyez Type 2 diabetes mellitus with other diabetic kidney complication E11.29 ; 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 Next Appt Details Follow Up: 3 Months, Reason: Provider Name:Priya Busby er, 06/22/2025 10:00:00 AM, [address], [address], [place], [place], [phone], Progress Notes * ANJU ZAVALADOB:1970 (7 2 yo F)Acc No.[id number]:10/27/2024 Progress Notes Patient: ANJU YOUNG Provider: Priya Reyez M.D. :1970 A ge:54 Y S ex:Female Date:10/27/2024 Address:[address] [place] [address] Subjective: * Chief Complaints: * 1 . 1 Month Follow Up. * HPI: C ardiology: The patient is here today for a check up on Hypertension, Hyperlipidemia, and Diabetes. Pt states she is doing good and denies any new concerns. Pt is fasting. Denies : Chest Pain. D enies : Short of Breath. D enies : Dizziness. D enies : Palpitations. E ndocrinology: Ultrasound performed September 28 showed multiple subcentimeter thyroid nodules, benign in appearance. Se also note from TOM Juarez. * ROS: D ERMATOLOGY: no R dayana. [...] , cholecystectomy, Dr. Wynne 07/2017, eye surgery, [facility] Dr. Lockett 2002, myomectomy 2005, Bilateral renal [...] MG Tablet Extended Release 24 Hour 1 tab(s) Orally twice a day , Taking Tresiba [...] DIRECTED CHANGE SENSOR EVERY 14 DAYS , Discontinued Ozempic (0.25 or 0.5 MG/DOSE) 2 MG/3ML Solution Pen-injector 0.5mg Subcutaneous , Discontinued amLODIPine Besylate 5 MG Tablet 1 tablet Orally Two times a day , Discontinued Doxazosin Mesylate 1 MG Tablet 1 tablet Orally At Bed Time , Medication List reviewed and reconciled with the patient * Allergies: M onistat 7 Complete Therapy. Objective: * Vitals: W t: 183.4, Temp: 98.0, BP: 130/80, HR: 65, Nurse: GO, Ht: 60, BMI:35.81. * Examination: G eneral Examination: General Appearance: N AD, note weight loss. H EENT:?unremarkable. O ral cavity: masked. N barney: s upple, no lymphadenopathy. C hest: n ormal shape and expansion. H eart: R SR. L ungs: c lear to auscultation. Neurologic Exam: I ntact, gait normal. S kin: n ormal, no rash. . P eripheral pulses: n ormal . E xtremities: n o leg edema. Assessment: * Assessment: 1. T ype 2 diabetes mellitus with other diabetic kidney complication - E11.29 (Primary) ? 2 . L forrest term (current) use of insulin - Z79.4 3 . R enal cyst - N28.1 S pecify :2 removed from the right and 1 from the left 4 . E ssential hypertension - I10 Plan: * Treatment: Value Reference Range g lycohemoglobin 7.4% 5 - 6.5 % * Waleska José 10/31/2024 04: 39:31 PM > see phone encounter Notes: Current course of treatment reviewed, including pertinent labs and diagnostic imaging.? 2.?Essential hypertension?LAB: P-Basic Metabolic Panel (BMP) (Collection Date & Time - 10/27/2024 09:49 AM)?Normal* Value Reference Range B UN 15 6-20 - mg/dL * C alcium 9.8 8.6-10.4 - mg/dL * C hloride 101 97-108 - mmol/L * C O2 27 22-32 - mmol/L * C reatinine 0.74 0.50-1.00 - mg/dL * G lucose 80 65-99 - mg/dL * P otassium 3.9 3.5-5.3 - mmol/L * S odium 140 135-145 - mmol/L * e GFR by Creatinine 97 >59 - mL/min/1.73m2 * Waleska José 10/31/2024 04: 39:31 PM > see phone encounter * Procedure Codes: 3 6416 CAPILLARY BLOOD DRAW, 20903 GLYCATED HEMOGLOBIN TEST, Modifiers: QW , 3075F SYST BP GE 130 - 139MM HG, 3079F DIAST BP 80-89 MM HG, 3051F HG A1C>EQUAL 7.0%<8.0% * Follow Up: 3 Months * Images: Billing Information: * Visit Code: 26549 Office Visit, Est Pt., Level 4. * Procedure Codes: 48512 CAPILLARY BLOOD DRAW. 41919 GLYCATED HEMOGLOBIN TEST. Modifiers: QW 3075F SYST BP GE 130 - 139MM HG. 3079F DIAST BP 80-89 MM HG. 3051F HG A1C>EQUAL 7.0%<8.0%. * Electronic signature of Priya Reyez MD on 02/26/2025 at 01:38 PM EDT Sign off status: Pending * Provider: Priya Reyez M.D. Date: 0 10/27/2024 Generated for Omayra leiva/Lashaun/eTransmitting on: 0 02/26/2025 01:38 PM EDT History and Physical Notes * HPI (History of Present Illness) Category Sub-Category Detail Notes Category Not es Endocrinology Ultrasound per formed September 28 showed multiple subcentimeter thyroid nodules, benign in appearance. Se also note from TOM Juarez. Cardiology Short of Breath Chest Pain Palpitations Dizziness Examination Category Sub-Category Detail Notes Category Not es General Examination HEENT: unremarkable Heart: RSR Lungs: clear to auscultatio n Extremities: no leg edema General Appearance: NAD, note weight los s Skin: normal, no rash. Neurologic Exam: Intact, gait normal Neck: supple, no lymphaden opathy Oral cavity: masked Peripheral pulses: normal Chest: normal shape and exp ansion
--- OUTSIDE RECORDS SUMMARY | 2025-02-15 10:30 | XMS_ITS ---
Author Organization [facility] Address [address] [facility] [address] [place], [place] [id number] Care Team Providers Care Dishcloth Folder Name Role Phone Priya Reyez Primary Care Provider Allergies Allergen (clinical drug ingredient) Drug/Non Drug Allergy documented on EMR Reaction Allergy Type Onset Date Status Monistat 7 Complete Therapy Unknown Drug Allergy Active Results Component Value Reference Range Notes P-Basic Metabolic Panel (BMP ) (Not yet reviewed by provider) Interpretation:gluc 188 Performing Lab: Notes/Report: Test performed by [facility], [facility] [address] [place] [address] , [address], [place] [address] Hu Mckeon MD, City Clerk CLIA: [id number] Sodium 139 135-145 mmol/L Potassium 3.6 3.5-5.3 mmol/L Chloride 102 97-108 mmol/L CO2 25 20-32 mmol/L Glucose 188 65-99 mg/dL BUN 16 6-20 mg/dL Creatinine 0.86 0.50-1.00 mg/dL Calcium 9.8 8.6-10.4 mg/dL eGFR by Creatinine 81 >59 mL/min/1.73m2 REASON FOR VISIT 3 month check, Needs labs, diabetic eye exam, & shingles vaccine Medications Medication SIG (Take, Route, Frequency, Duration) Notes Start Date End Date Status Lisinopril-hydroCHLOROth iazide 20-25 MG 1 tablet Orally Once a day; Duration: 90 days Active FreeStyle Rex 2 Sensor - USE DIRECTED CHANGE SENSOR EVERY 14 DAYS; Duration: 28 Active Wixela Inhub 250-50 MCG/ACT USE ONE INHALATION TWICE DAILY; Duration: 30 Active Atorvastatin Calcium 20 MG 1 tab(s) orally once a day; Duration: 30 days Active CoQ10 100 MG orally once a day Active metFORMIN HCl ER 500 MG 1 tab(s) Orally twice a day Active ProAir Digihaler 108 (90 Base) MCG/ACT 2 puff(s) inhaled 4 times a day 04/22/2021 Active Trulicity 0.75 MG/0.5ML as directed Subcutaneous 0 09/04/2024 Active Tresiba 100 UNIT/ML 22 units Subcutaneou s each morning Not-Taking Vital Signs Weight 191.8 lbs 02/15/2025 Blood pressure systolic 140 mm Hg 02/16/20 25 Blood pressure diastolic 80 mm Hg 025 Heart Rate 73 /min 02/15/2025 Height 60 in 02/15/2025 BMI 37.45 kg/m2 02/15/2025 Encounters Encounter Location Date Provider Diagnosis [facility] [address] [facility] [address] [facility] [address] [place] [id number] 02/15/2025 Priya Reyez Type 2 diabetes mellitus without complication, without long-term current use of insulin E11.9 ; Essential hypertension I10 ; Type 2 diabetes mellitus with diabetic chronic kidney disease E11.22 and Renal cyst N28.1 Assessments Encounter Date Diagnosis (ICD Code) Assessment Notes Treatment Notes Treatment Clinical Notes Section Notes 02/15/2025 Type 2 diabetes mellitus without complication, without long-term current use of insulin (ICD-10 - E11.9) 02/15/2025 Essential hypertension (ICD-10 - I10) 02/15/2025 Type 2 diabetes mellitus with diabetic chronic kidney disease (ICD-10 - E11.22) 02/15/2025 Renal cyst (ICD-10 - N28.1) Plan Of Treatment Pending Test Test Name Order Date Ultrasound : Kidneys, bilateral 02/16/20 25 P-Basic Metabolic Panel (BMP) 02/15/2025 Next Appt Details Follow Up: 3 Months, Reason: Provider Name:Priya Busby er, 06/22/2025 10:00:00 AM, [address] [facility], [address], [place], [id number], Progress Notes * SHANNAN ZAVALA:1970 ([age] yo F)Acc No.[id number]:02/15/2025 Progress Notes Patient: ANJU YOUNG Provider: Priya Reyez M.D. :1970 A ge:54 Y S ex:Female Date:02/15/2025 Address:[address] [place] [address] Subjective: * Chief Complaints: * 1 . 3 month check. 2. Needs labs, diabetic eye exam, & shingles vaccine. * HPI: C ardiology: The pt is here for a check up on Hypertension and Diabetes. Pt states she is doing good and denies any new concerns. Pt is not fasting today. Pt is needing a refill for Atorvastatin and Pro air for 90 day supply sent to [facility] in [place]. Denies : Chest Pain. D enies : Short of Breath. D enies : Dizziness. D enies : Palpitations. E ndocrinology: Endocrinology D/C' the insulin 2 months ago. A1c was 6.5 at that visit. 6.8 today. * ROS: D ERMATOLOGY: no R dayana. [...] Dr. Wynne 07/2017, eye surgery, [facility] Dr. Lockett 2002, myomectomy 2005, [...] tab(s) Orally twice a day , Taking Trulicity 0.75 MG/0.5ML Solution Auto-injector as directed Subcutaneous , Taking ProAir Digihaler 108 (90 Base) MCG/ACT Aerosol Powder Breath Activated 2 puff(s) inhaled 4 times a day , Taking CoQ10 100 MG Capsule orally once a day , Taking Atorvastatin Calcium 20 MG Tablet 1 tab(s) orally once a day , Taking Wixela Inhub 250-50 MCG/ACT Aerosol Powder Breath Activated USE ONE INHALATION TWICE DAILY , Taking FreeStyle Rex 2 Sensor - Miscellaneous USE DIRECTED CHANGE SENSOR EVERY 14 DAYS , Taking Lisinopril-hydroCHLOROthiazide 20-25 MG Tablet 1 tablet Orally Once a day , Not-Taking Tresiba 100 UNIT/ML Solution 22 units Subcutaneous each morning , Medication List reviewed and reconciled with the patient * Allergies: M onistat 7 Complete Therapy. Objective: * Vitals: W t: 191.8, Temp: 97.9, BP: 140/80, HR: 73, Nurse: GO, Ht: 60, BMI:37.45. * Examination: G eneral Examination: General Appearance: [...] ormal . E xtremities: n o leg edema, CGM right upper arm. ? Assessment: * Assessment: 1. T ype 2 diabetes mellitus without complication, without long-term current use of insulin - E11.9 (Primary) 2 . E ssential hypertension - I10 3 . T ype 2 diabetes mellitus with diabetic chronic kidney disease - E11.22 4 . R enal cyst - N28.1 S pecify :2 removed from the right and 1 from the left Plan: * Treatment: Value Reference Range B UN 16 6-20 - mg/dL * C alcium 9.8 8.6-10.4 - mg/dL * C hloride 102 97-108 - mmol/L * C O2 25 20-32 - mmol/L * C reatinine 0.86 0.50-1.00 - mg/dL * G lucose 188 H 65-99 - mg/dL * P otassium 3.6 3.5-5.3 - mmol/L * S odium 139 135-145 - mmol/L * e GFR by Creatinine 81 >59 - mL/min/1.73m2 ?Imaging: Ultrasound : Kidneys, bilateral* Belle C[place]illo 02/20/2025 01:18 :29 PM EDT > no auth required; CPT code 02493; faxed to [facility] Scheduling * Procedure Codes: 1 036F TOBACCO NON-USER * Follow Up: 3 Months * Images: Billing Information: * Visit Code: 85924 Office Visit, Est Pt., Level 4. * Procedure Codes: 1036F TOBACCO NON-USER. * Electronic signature of Priya Reyez MD on 02/26/2025 at 01:38 PM EDT Sign off status: Pending * Provider: Priya Reyez M.D. Date: 02/15/2025 Generated for Printi ng/Faxing/eTransmitting on: 0 02/26/2025 01:38 PM EDT History and Physical Notes * HPI (History of Present Illness) Category Sub-Category Detail Notes Category Not es Endocrinology Endocrinology D/C' the insulin 2 months ago. A1c was 6.5 at that visit. 6.8 today. Cardiology Short of Breath Chest Pain Palpitations Dizziness Examination Category Sub-Category Detail Notes Category Not es General Examination HEENT: unremarkable Heart: RSR Lungs: clear to auscultatio n Extremities: no leg edema, CGM ri ght upper arm General Appearance: NAD, note weight los s Skin: normal, no rash. Neurologic Exam: Intact, gait normal Neck: supple, no lymphaden opathy Oral cavity: masked Peripheral pulses: normal Chest: normal shape and exp ansion
--- NOTE | 2025-02-26 13:32 | US_ITS ---
FINAL REPORT TECHNIQUE: Ultrasound images of the kidneys and bladder were obtained. CLINICAL HISTORY: CYST COMPARISON: 06/25/2023 FINDINGS: The right kidney measures 9.7 cm in length. It is normal in echogenicity. There is no hydronephrosis. There is an upper pole right renal cyst present, which measures 3.9 cm in size, was previously 3.8 cm. There is a mid right renal cyst that was not seen on the prior examination, that measures up to 1.3 cm in size. The left kidney measures 11.24 cm in length. It is normal in echogenicity. There is no hydronephrosis. There is an upper pole central left renal cyst measuring up to 3.1 cm, was previously 2 cm. IMPRESSION: Some enlargement of multiple bilateral renal cysts as described above. Reviewed, Interpreted and Dictated by Zeina Lord MD Transcribed by Laura Garza Authenticated and . [facility]
--- OUTSIDE RECORDS SUMMARY | 2025-02-26 13:38 | XMS_ITS | Encounter Summary ---
Author Organization [employer] ([place], [place], [place], [place]) Address [address] [place] [address] Care Team Providers Care Teacher Adventure Education Name Role Phone Rafi Estrada MD Primary Care Provider [phone] Encounter Details Date Type Department Care Team (Late st Contact Info) Description 09/26/2018 Transcribed Document [facility] [place] [address] [place] [address] ProviderSilviano MD [address] [place] [address] Social History Tobacco Use Types Packs/Day Years Used Date Smoking Tobacco: Never Assessed Comments Unknown Sex and Gender Information Value Date Recorded Sex Assigned at Female 02/10/2022 7:58 PM CDT Legal Sex Female 7:58 PM CDT Gender Identity Female 02/10/2022 7:58 PM CDT Sexual Orientation Not on file documented as of this encounter Miscellaneous Notes * Cerner Conversion Note - Silviano ProviderMD - 09/26/2018 1:40 PM REFERENCE SERVICES HEAD [address] , [place] [address] Patient Copy Patient Information: Name: ARLEN ZAVALA Current Date: 09/26/2018 13:40:35 : 1970 Patient Address: [place] [address] Patient Attending Physician: BORA MCNULTY MD-URO Primary Care Provider: KARELY ESTRADA MD-DANE Primary Care Provider Discharge Diagnosis: Weight on Admission: 187 lb, 0 oz Comment: Follow-up Instructions: With: Address: Tony: BORA MCNULTY [address] [place], [place] [id number] Business (1) Within 1 week Discharge Instructions: Diet after Discharge: Resume usual diet as tolerated Activity after Discharge: Rest and relax today, No strenuous activities, No heavy lifting over 10 pounds, Other: for a day or two. Driving after Discharge: Other: No driving for 24 hours. Showering/Bathing:May shower Wound/Incision Care after Discharge: Keep operative site/wound site clean and dry Immunizations Documented During Stay: No Immunizations Found Heart Failure Discharge Instructions (if any): Stroke Related Discharge Instructions (if any): Warfarin Related Discharge Instructions (if any): Final Medication List: Other Medications albuterol 2 puffs Every 6 Hours as needed as needed for shortness of breath or wheezing. amLODIPine 5 Milligram(s) Oral Every Day. atorvastatin 20 Milligram(s) Oral Every Day. fluticasone-salmeterol (Advair Diskus 250 mcg-50 mcg inhalation powder) 1 Puff(s) Inhalation Two Times A Day. hydrochlorothiazide-lisinopril (hydroCHLOROthiazide-lisinopril 25 mg-20 mg oral tablet) 1 Tablet(s) Oral Every Day. liraglutide (Victoza 18 mg/3 mL subcutaneous solution) 1.2 Milligram(s) SubCutaneous Every Day. metFORMIN (metFORMIN 500 mg oral tablet) 2 tabs in am and 1 tab in pm. ubiquinone (Co Q-10) 100 Milligram(s) Oral Every Day. Patient Allergies: Monistat 7; progesterone Medication Instructions: Take your medications faithfully. Do NOT skip medication. Do NOT stop taking medications without the direction of a physician. Carry a list of your medications with you at all times, and take this medication list with you to your first follow up visit. Report any side effects. Avoid herbal remedies unless discussed with your physician. As part of your treatment plan, your physician may have prescribed a limited course of a controlled substance. This medication may be given to help people with moderate or severe pain or for other medical conditions, but there are risks involved with treatment. Common side effects may include nausea, constipation, drowsiness, sweating, itching, dry mouth, and rash. More serious side effects may include cognitive and motor impairment, like problems with thinking, concentrating, alertness, and movement (e.g. slowed reflexes), and driving and operating heavy machinery can be dangerous. It is important for you to talk to your physician if you have these side effects or questions. These controlled substances can produce physical dependence and be habit-forming if taken for an extended period of time, which means that the body has gotten used to them and may experience withdrawal symptoms if they are abruptly stopped. Withdrawal symptoms can include runny nose, sweating, goose bumps, diarrhea, abdominal cramping, rapid heartbeat, difficulty sleeping, and nervousness. Patient education materials: Needle Biopsy, Care After Introduction Refer to this sheet in the next few weeks. These instructions provide you with information about caring for yourself after your procedure. Your health care provider may also give you more specific instructions. Your treatment has been planned according to current medical practices, but problems sometimes occur. Call your health care provider if you have any problems or questions after your procedure. What can I expect after the procedure? After your procedure, it is common to have soreness, bruising, or mild pain at the biopsy site. This should go away in a few days.Follow these instructions at home: ??? Rest as directed by your health care provider. ??? Take medicines only as directed by your health care provider. ??? There are many different ways to close and cover the biopsy site, including stitches (sutures), skin glue, and adhesive strips. Follow your health care provider's instructions about:? Biopsy site care. ? Bandage (dressing) changes and removal. ? Biopsy site closure removal. ??? Check your biopsy site every day for signs of infection. Watch for:? Redness, swelling, or pain. ? Fluid, blood, or pus. Contact a health care provider if: ??? You have a fever. ??? You have redness, swelling, or pain at the biopsy site that lasts longer than a few days. ??? You have fluid, blood, or pus coming from the biopsy site. ??? You feel nauseous. ??? You vomit. Get help right away if: ??? You have shortness of breath. ??? You have trouble breathing. ??? You have chest pain. ??? You feel dizzy or you faint. ??? You have bleeding that does not stop with pressure or a bandage. ??? You cough up blood. ??? You have pain in your abdomen. This information is not intended to replace advice given to you by your health care provider. Make sure you discuss any questions you have with your health care provider. Document Released: 12/17/2015 Document Revised: 01/07/2017 Document Reviewed: 07/29/2015 ? 2017 Elsevier Moderate Conscious Sedation, Adult, Care After These instructions provide you with information about caring for yourself after your procedure. Your health care provider may also give you more specific instructions. Your treatment has been planned according to current medical practices, but problems sometimes occur. Call your health care provider if you have any problems or questions after your procedure. What can I expect after the procedure? After your procedure, it is common: ??? To feel sleepy for several hours. ??? To feel clumsy and have poor balance for several hours. ??? To have poor judgment for several hours. ??? To vomit if you eat too soon. Follow these instructions at home: For at least 24 hours after the procedure: ??? Do not: ? Participate in activities where you could fall or become injured. ? Drive. ? Use heavy machinery. ? Drink alcohol. ? Take sleeping pills or medicines that cause drowsiness. ? Make important decisions or sign legal documents. ? Take care of children on your own. ??? Rest. Eating and drinking ??? Follow the diet recommended by your health care provider. ??? If you vomit: ? Drink water, juice, or soup when you can drink without vomiting. ? Make sure you have little or no nausea before eating solid foods. General instructions ??? Have a responsible adult stay with you until you are awake and alert. ??? Take msse-vpy-yukrmou and prescription medicines only as told by your health care provider. ??? If you smoke, do not smoke without supervision. ??? Keep all follow-up visits as told by your health care provider. This is important. Contact a health care provider if: ??? You keep feeling nauseous or you keep vomiting. ??? You feel light-headed. ??? You develop a rash. ??? You have a fever. Get help right away if: ??? You have trouble breathing. This information is not intended to replace advice given to you by your health care provider. Make sure you discuss any questions you have with your health care provider. Document Released: 05/23/2014 Document Revised: 01/04/2017 Document Reviewed: 11/21/2016 ElseTradeCloud.nl Interactive Patient Education ? 2017 [employer] CIGARETTE SMOKING: The facts are clear, cigarette smoking will shorten your life. Smoking can cause many illnesses along the way. As a healthcare provider, we recommend that you stop smoking. Assistance with quitting is available by contacting 3-152-ZAPK-NOW. This is a free resource providing counseling, support, and referral. Or you may contact your personal physician. 4 WAYS TO GET AHEAD OF SEPSIS SEPSIS is a MEDICAL EMERGENCY. Time matters! Infections put you and your family at risk for a life-threatening condition called sepsis. Sepsis is the body???s extreme response to an infection. It is life-threatening, and without timely treatment, sepsis can rapidly lead to tissue damage, organ failure, and . Sepsis happens when an infection you already have???in your skin, lungs, urinary tract or somewhere else???triggers a chain reaction throughout your body. 1 PREVENT INFECTIONS Take good care of chronic conditions. Talk to your doctor about getting the recommended vaccines. 2 PRACTICE GOOD HYGIENE Wash your hands frequently. Keep cuts or open sores clean and covered until they are healed. 3 KNOW THE SYMPTOMS Confusion or disorientation Shortness of breath High heart rate Fever, shivering, or feeling very cold Extreme pain or discomfort Clammy or sweaty skin 4 ACT FAST Get medical care IMMEDIATELY if you suspect sepsis or if you have an infection that???s not getting better or is getting worse. To learn more about sepsis and how to prevent infections, visit www.cdc.gov/sepsis. STROKE is an EMERGENCY Every Minute Counts ACT F.A.S.T! FACE ?? Facial droop ?? Uneven smile ARM ?? Arm numbness ?? Arm weakness SPEECH ?? Slurred speech ?? Difficulty speaking or understanding TIME ?? Call 911 and get to the hospital immediately Have the ambulance go to the nearest stroke center. STROKE Risk Factors High blood pressure High cholesterol Heart Disease Diabetes Smoking Heavy alcohol use Physical inactivity and obesity Atrial Fibrillation (irregular heartbeat) Family history of stroke Reminder: Be sure to sign up for the My [facility] patient portal, which gives you 08/03 access to your medical information ??? including these discharge instructions ??? using your computer, smartphone, or tablet. Just go to [employer] to get started. Questions? Call . [facility] would like to thank you for allowing us to assist you with your healthcare needs. CORINNE Padron AMY SUE, (or promotional representative) have received the above patient education materials/instructions and have verbalized understanding: Patient Signature _ Date/Time Patient Manager Erp Signature (if needed) Date/Time Clinician/Hospital Manager Erp Signature (if needed) Date/Time Electronically signed by Kendall [facility] Conversion Induction Coordination Engineer Cerner at 11/28/2022 11:07 AM CDT documented in this encounter Plan of Treatment Not on file documented as of this encounter Visit Diagnoses Not on filedocumented in this encounter Care Teams Teacher Adventure Education Relationship Specialty Start Date End Date Rafi Estrada MD [address] [place] [address] PCP - General Family Medicine 10/07/23 documented as of this encounter
--- OUTSIDE RECORDS SUMMARY | 2025-02-26 13:38 | XMS_ITS | Encounter Summary ---
Author Organization [employer] ([place], [place], [place], [place]) Address [address] [place] [address] Care Team Providers Care Lumber Driver Name Role Phone Rafi Reyez MD Primary Care Provider [phone] Encounter Details Date Type Department Care Team (Late st Contact Info) Description 09/26/2018 Transcribed Document [facility] [place] [facility] [place] [address] ProviderSilviano MD [address] [place] [address] Social History Tobacco Use Types Packs/Day [...] Conversion Note - Silviano ProviderMD - 09/26/2018 1:38 PM TAKE DOWN SORTER Nursing Discharge Summary Entered On: 09/26/2018 13:39 EST Performed On: 09/26/2018 13:38 EST by STEVEN BURNS, outer diameter grinder Documentation Discharge Date/Time : 09/26/2018 15:15 EST Patient Disposition, General : Discharge Discharge To : Home with ambulatory/outpatient follow-up Mode Of Departure, General Discharge : Private vehicle, Public transportation Accompanied By, Discharge : Spouse IV Discontinued : Yes Personal Belongings With Patient : Yes Discharge Instructions Reviewed With, Opportunity For Questions Given : Patient, Spouse Patient Education Completed : Yes Teaching Method : Explanation, Printed materials Teaching Evaluation : Returns demonstration, Verbalizes understanding STEVEN BURNS, ASHER - 09/26/2018 13:38 EST Electronically signed by Kendall, [facility] Conversion Physical Therapist Cerner at 11/28/2022 10:56 AM CDT documented in this encounter Plan of Treatment Not on file documented as of this encounter Visit Diagnoses Not on filedocumented in this encounter Care Teams Lumber Driver Relationship Specialty Start Date End Date Rafi Reyez MD [address] [place] [address] PCP - General Family Medicine 10/07/23 documented as of this encounter
--- OUTSIDE RECORDS SUMMARY | 2025-02-26 13:38 | XMS_ITS | Encounter Summary ---
Author Organization [employer] ([place], [place], [place], [place]) Address [address] [place] [address] Care Team Providers Care Door Core Assembler Name Role Phone Rafi eRyez MD Primary Care Provider [phone] Encounter Details Date Type Department Care Team (Late st Contact Info) Description 09/26/2018 Transcribed Document [facility] [place] [facility] [place] [address] ProviderSilviano MD [address] [place] [address] Social History Tobacco Use Types Packs/Day [...] Conversion Note - Silviano ProviderMD - 09/26/2018 10:27 AM TOOTH POLISHER Pre Procedure Adult Entered On: 09/26/2018 10:31 EST Performed On: 09/26/2018 10:27 EST by JOSE EDUARDO LORENZO RN Height and Weight, Clinical Dosing Height Source : Measured Height Entry Format : Nathalie Height, Feet : 5 ft(Converted to: 152 cm, 60 Inch) Height, Inches : 0 Inch(Converted to: 0 ft 0 Inch, 0.00 cm) Clinical Height : 152.4 cm Weight Source : Standing scale Weight Entry Format : Nathalie Clinical Dosing Weight : 85 kg Weight, Pounds : 187 lb Body Surface Area (BSA) : 1.82 m2 Body Mass Index : 36.6 kg/m2 (HI) [place] Body Weight : 45 kg JOSE EDUARDO LORENZO RN - 09/26/2018 10:27 EST Health Histories Smoking Status : Never (less than 100 in lifetime; none in last 30 days) Smokeless Tobacco Status : Never JOSE EDUARDO LORENZO RN - 09/26/2018 10:27 EST Social History (As Of: 09/26/2018 10:31:49 EST) Tobacco: Smoking Status Never smoker. None Smoking Frequency Within Last 30 Days. Years of Use: 0. Used Tobacco, but Quit No. Second Hand Smoke Exposure: No. No Smokeless Tobacco Use in Last 30 Days. (Last Updated: 07/05/2016 08:46:59 EST by NIRAV WALKER RN) Alcohol: Alcohol Use History No. (Last Updated: 07/05/2016 08:46:59 EST by NIRAV WALKER RN) Substance Abuse: Drug Use Hx: No. Use in Last 12 Months: No. (Last Updated: 07/05/2016 08:46:59 EST by NIRAV WALKER RN) Infectious Disease History Infectious Disease History : Chicken pox/Shingles Fever/Chills Last 48 Hours : No Travel To Regions with Travel Advisories : No Travel Outside [place] Within Last 30 Days : No Contact With Traveler to Advisory Region : No Tuberculosis Symptoms : None JOSE EDUARDO LORENZO RN - 09/26/2018 10:27 EST Anesthesia/Transfusion History Family History of Anesthesia Reaction : No prior transfusion(s) Transfusion History : Prior anesthesia without reaction Family History of Anesthesia Reaction : None JOSE EDUARDO LORENZO RN - 09/26/2018 10:27 EST Functional Assessment Living Situation : Home Current Home Treatments : Blood glucose monitoring JOSE EDUARDO LORENZO RN - 09/26/2018 10:27 EST Psychosocial History Currently in Unsafe Situation : No Tried to Harm Yourself in the Past? : No Thoughts of Harming/Killing Yourself : No JOSE EDUARDO LORENZO RN - 09/26/2018 10:27 EST Advance Directive Patient has Advance Directive *Q : No, patient refuses Advance Directive information JOSE EDUARDO LORENZO RN - 09/26/2018 10:27 EST Teaching/Learning Assessment Barriers To Learning : None evident Individuals Taught : Patient Readiness to Learn : Cooperative Readiness to Learn : Explanation Learning Style Preferences Family : Verbal explanation JOSE EDUARDO LORENZO RN - 09/26/2018 10:27 EST Education Topics, Periop Preadmission Perioperative Education Grid Postoperative Care Preparations : Verbalizes understanding Preprocedure Preparations : Verbalizes understanding JOSE EDUARDO LORENZO RN - 09/26/2018 10:27 EST General Info Arrived From : Home Mode of Arrival on Unit : Ambulatory Patient Arrival Date/Time : 09/26/2018 10:29 EST Legal Guardian : Spouse Support Person/Pt Rep Name : Gregorio Storm Family/Rep/Phys Notified of Admit : No Emergency Contact #1 : none Emergency Contact #1 Phone Number : none Emergency Contact #1 Relationship : none Emergency Contact #2 : none Emergency Contact #2 Phone Number : none Emergency Contact #2 Relationship : none Primary Language : Latvian Communication Barrier : None JOSE EDUARDO LORENZO RN - 09/26/2018 10:27 EST Vital Measurements Temperature, Fahrenheit : 98.7 Deg F Clinical Temperature, C : 37.1 Deg C Peripheral Pulse Rate : 74 bpm Systolic Blood Pressure : 144 mmHg (HI) Diastolic Blood Pressure : 70 mmHg Oxygen Saturation : 99 % JOSE EDUARDO LORENZO RN - 09/26/2018 10:27 EST Sleep Apnea Risk Assmt Hx of Obstructive Sleep Apnea Diagnosis : No Snore Loudly : Yes Tired, Fatigued, or Sleepy During Day : No Observed Stopping Breathing During Sleep : No Have/Are Being Treated for Hypertension : Yes STOP Sleep Apnea Risk Level Score : 2 STOP Sleep Apnea Risk Level : High JOSE EDUARDO LORENZO RN - 09/26/2018 10:27 EST Shawn Scale Shawn Sensory Perception : No impairment Shawn Moisture : Rarely moist Shawn Activity : Walks frequently Shawn Mobility : No limitation Shawn Nutrition : Excellent Shawn Friction and Shear : No apparent problem Shawn Score : 23 JOSE EDUARDO LORENZO RN - 09/26/2018 10:27 EST Pain Assessment Pain Assessment : Initial assessment Pain Scale Used : 0-10 Scale Location : Flank, right JOSE EDUARDO LORENZO RN - 09/26/2018 10:27 EST Fall Risk Scales ABCs Fall Injury Risk Identification : None BAEZ Hx Falls Immediate/Within 3 Months : No Baez Secondary Diagnosis : Yes BAEZ Use of Ambulatory Aid : None BAEZ IV Therapy or IV Access : Yes Baez Gait/Transferring : Normal, bedrest, immobile Baez Mental Status : Oriented to own ability Baez Fall Risk Score : 35 BAEZ Fall Scale Risk Level : 25-45 Medium Risk Mineral Fall Interventions : Adequate lighting, Bed in low position, Call device within reach, Non-slip footwear, Wheels locked JOSE EDUARDO LORENZO RN - 09/26/2018 10:27 EST Valuables and Belongings Valuables and Belongings : Clothing, Personal items Clothing : Common streetwear Clothing Disposition : Bedside Personal Items : Purse Personal Items Disposition : With family JOSE EDUARDO LORENZO RN - 09/26/2018 10:27 EST Pain Scale Intensity : 2 JOSE EDUARDO LORENZO RN - 09/26/2018 10:27 EST Image 4 - Images currently included in the form version of this document have not been included in the text rendition version of the form. documented in this encounter Plan of Treatment Not on file documented as of this encounter Visit Diagnoses Not on filedocumented in this encounter Care Teams Door Core Assembler Relationship Specialty Start Date End Date Rafi Reyez MD [address] [place] [address] PCP - General Family Medicine 10/07/23 documented as of this encounter
--- OUTSIDE RECORDS SUMMARY | 2025-02-26 13:38 | XMS_ITS | Encounter Summary ---
Author Organization [employer] ([place], [place], [place], [place]) Address [address] [place] [address] Care Team Providers Care Adjuster Electrical Contacts Name Role Phone Rafi Reyez MD Primary Care Provider [phone] Encounter Details Date Type Department Care Team (Late st Contact Info) Description 09/26/2018 Transcribed Document [facility] [place] [facility] [place] [address] ProviderSilviano MD [address] [place] [address] Social History Tobacco Use Types Packs/Day Years Used Date Smoking Tobacco: Never Assessed Comments Unknown Sex and Gender Information Value Date Recorded Sex Assigned at Female 02/10/2022 7:58 PM CDT Legal Sex Female 7:58 PM CDT Gender Identity Female 02/10/2022 7:58 PM CDT Sexual Orientation Not on file documented as of this encounter Miscellaneous Notes * Cerner Conversion Note - Silviano Chow MD - 09/26/2018 1:40 PM CAMPUS SECURITY OFFICER Patient Education Materials Follows: Needle Biopsy, Care After Introduction Refer to [...] 01/07/2017 Document Reviewed: 07/29/2015 ? 2017 Elsevier Pharmacology Moderate Conscious Sedation, Adult, Care After These [...] you are awake and alert. ??? Take vyng-dcl-lhyujjf and prescription medicines only as told by [...] 05/23/2014 Document Revised: 01/04/2017 Document Reviewed: 11/21/2016 [employer] Interactive Patient Education ? 2017 [employer] Electronically signed by Isabel Argueta Conversion Security Services Specialist Cerner at 11/28/2022 10:59 AM CDT documented in this encounter Plan of Treatment Not on file documented as of this encounter Visit Diagnoses Not on filedocumented in this encounter Care Teams Adjuster Electrical Contacts Relationship Specialty Start Date End Date Rafi Reyez MD [address] [place] [address] PCP - General Family Medicine 10/07/23 documented as of this encounter
--- OUTSIDE RECORDS SUMMARY | 2025-02-26 13:38 | XMS_ITS | Encounter Summary ---
Author Organization [employer] ([place], [place], [place], [place]) Address [address] [place] [address] Care Team Providers Care Highway Engineer Name Role Phone Rafi Reyez MD Primary Care Provider [phone] Encounter Details Date Type Department Care Team (Late st Contact Info) Description 09/26/2018 Transcribed Document [facility] [place] [facility] [place] [address] ProviderSilviano MD [address] [place] [id number] Social History Tobacco Use Types Packs/Day [...] Conversion Note - Silviano ProviderMD - 09/26/2018 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 Drying And Winding Supervisor: Emery Inman PA-C Sedation: Procedural Findings: 90 mL of fluid aspirated from renal cyst, 45 mL dehydrated alcohol injected and aspirated. Complications: None EBL: _< 20 ml Specimen(s) Removed: 90 mL of fluid aspirated from right renal cyst. Full report to follow. Electronically signed by Kendall, [facility] Conversion Drama Therapist Cerner at 11/28/2022 11:03 AM CDT documented in this encounter Plan of Treatment Not on file documented as of this encounter Visit Diagnoses Not on filedocumented in this encounter Care Teams Highway Engineer Relationship Specialty Start Date End Date Rafi Reyez MD [address] [place] [address] PCP - General Family Medicine 10/07/23 documented as of this encounter
--- OUTSIDE RECORDS SUMMARY | 2025-02-26 13:38 | XMS_ITS | Encounter Summary ---
Author Organization [employer] ([place], [place], [place], [place]) Address [address] [place] [address] Care Team Providers Care Golf Range Attendant Name Role Phone Rafi Reyez MD Primary Care Provider [phone] Encounter Details Date Type Department Care Team (Late st Contact Info) Description 09/26/2018 Transcribed Document [facility] [place] Family [facility] [place] [address] ProviderSilviano MD [address] [place] [address] Social History Tobacco Use Types Packs/Day [...] Conversion Note - Silviano ProviderMD - 09/26/2018 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 Driving After Discharge : Other: No driving for 24 hours. Showering/Bathing : May shower Wound/Incision Care After Discharge : Keep operative site/wound site clean and dry STEVEN BURNS RN - 09/26/2018 13:39 EST Electronically signed by Kendall, [facility] Conversion Civil Engineering Director Cerner at 11/28/2022 10:59 AM CDT documented in this encounter Plan of Treatment Not on file documented as of this encounter Visit Diagnoses Not on filedocumented in this encounter Care Teams Golf Range Attendant Relationship Specialty Start Date End Date Rafi Reyez MD [address] [place] [address] PCP - General Family Medicine 10/07/23 documented as of this encounter
--- OUTSIDE RECORDS SUMMARY | 2025-02-26 13:39 | XMS_ITS | Data Portability ---
Author Organization [facility] [place], [place] CLOSED Address [address] [place] [address] Care Team Providers Care Senior Housekeeper Name Role Phone PRICILABORA Referring Provider RASHEED ESTRADA Primary Care Provider Assessment Encounter Date Assessment Date Assessment LastModified by Organization Details LastModified Time 11/09/2024 11/09/2024 54-year-old fema le with a history of bilateral renal cysts presenting with follow-up for renal cysts. Post-surgical benign pathology and recent ultrasound show tiny bilateral cysts with no significant findings. Renal insufficiency is under primary and endocrinological care. [email or web address] Not available 11/10/2024 10:11:09 Plan of Treatment Reminders Order Date Submit Date Provider Last Modified By Organization Details Last Modified Time Details Appointments RECHECK 2024 10:00A M KAVON RUSSO APRN Not available Not available Not available Lab glucose, fingerst ick, blood [address] Endocrinology , [address] [place] [address], [address], 11/30/2024 10:54:45 hemoglob in A1C, fingerst ick [address] Endocrinology , [address] [place] [address], [address], 11/30/2024 10:54:45 urinalys is panel, auto 2024 025 [facility], [address], [place], [address], 11/13/2024 08:04:19 glucose, fingerst ick, blood 2024 025 [email or web address] [facility], [address] [place], [address], 09/28/2024 09:52:07 Referral None recorded . Procedures None recorded . Surgeries None recorded . Imaging US, retroper itoneum, limited 2024 025 [facility], [address] [place] [address], [address], 11/13/2024 08:04:19 Medication Orders Tresiba FlexTouc h U-100 insulin 100 unit/mL (3 mL) subcutan eous pen 2024 025 [facility], [address] [place], [address], 11/30/2024 10:54:52 metformi n ER 500 mg tablet,e xtended release 24 hr 2024 025 [facility], [address] [place], [address], 11/30/2024 10:54:50 Trulicit y 1.5 mg/0.5 mL subcutan eous pen injector 2024 025 [facility], [address] [place], [address], 11/30/2024 10:54:51 Tresiba FlexTouc h U-100 insulin 100 unit/mL (3 mL) subcutan eous pen 2024 025 [facility], [address] [place], [address], 09/28/2024 09:52:19 metformi n ER 500 mg tablet,e xtended release 24 hr 2024 025 [facility], [address], [address], 09/28/2024 09:52:07 Trulicit y 0.75 mg/0.5 mL subcutan eous pen injector 2024 025 [facility], [address], [address], 09/28/2024 09:52:19 Patient TargetsNo targets recorded. Patient Instructions Encounter Date Encounter Id Patient Instructions Last Modified By Organization Details Last Modified Time 11/09/2024 [id number] - Continue with annual renal ultrasound appointments to monitor kidney cysts. 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 - Report any new symptoms or changes in condition to your healthcare providers. [email or web address] Not available 11/10/2024 10:11:12 Reason for Referral None Reported. Results Created Date Observation Date Name Description Value Unit Range Abnormal Flag Note LastModifiedBy Organization Detail LastModifiedTime 09/13/1909/13/2024 COMP. METAB OLIC PANEL glucose 184 mg/dL 74-100 high Not Available [facility] [address] [place] [address], [address], 09/13/2024 10:51:13 09/13/19 25 09/13/2024 COMP. METAB OLIC PANEL blood urea nitrogen 13 mg/dL 6-20 normal Not Available [facility] [address] [place], [address], 09/13/2024 10:51:13 09/13/19 25 09/13/2024 COMP. METAB OLIC PANEL creatinine 0.76 mg/dL 0.50-0 .95 normal Not Available [facility] [address] [place], [address], 09/13/2024 10:51:13 09/13/19 25 09/13/2024 COMP. METAB OLIC PANEL BUN/creatini ne ratio 17 (calc ) 10-20 normal Not Available [facility] [address] [place] [address], [address], 09/13/2024 10:51:13 09/13/19 25 09/13/2024 COMP. METAB OLIC PANEL sodium 137 mmol/ L 136-14 5 normal Not Available [facility] [address] [place] [address], [address], 09/13/2024 10:51:13 09/13/19 25 09/13/2024 COMP. METAB OLIC PANEL potassium 3.8 mmol/ L 3.4-5. 0 normal Not Available [facility] [address] [place] [address], [address], 09/13/2024 10:51:13 09/13/19 25 09/13/2024 COMP. METAB OLIC PANEL chloride 99 mmol/ L 98-107 normal Not Available [facility] [address] [place] [address], [address], 09/13/2024 10:51:13 09/13/19 25 09/13/2024 COMP. METAB OLIC PANEL carbon dioxide 26 mmol/ L 22-31 normal Not Available [facility] [address] [place] [address], [address], 09/13/2024 10:51:13 09/13/19 25 09/13/2024 COMP. METAB OLIC PANEL anion gap 12 (calc ) 7-25 normal Not Available [facility] [address] [place] [address], [address], 09/13/2024 10:51:13 09/13/19 25 09/13/2024 COMP. METAB OLIC PANEL calcium 10.0 mg/dL 8.6-10 .2 normal Not Available [facility] [address] [place] [address], [address], 09/13/2024 10:51:13 09/13/19 25 09/13/2024 COMP. METAB OLIC PANEL total protein 8.4 g/dL 6.4-8. 3 high Not Available [facility] [address] [place] [address], [address], 09/13/2024 10:51:13 09/13/19 25 09/13/2024 COMP. METAB OLIC PANEL albumin 4.3 g/dL 3.5-5. 2 normal Not Available [facility] [address] [place] [address], [address], 09/13/2024 10:51:13 09/13/19 25 09/13/2024 COMP. METAB OLIC PANEL globulin 4.1 1.5-4. 5 normal Not Available [facility] [address] [place] [address], [address], 09/13/2024 10:51:13 09/13/19 25 09/13/2024 COMP. METAB OLIC PANEL albumin/glob ulin ratio 1.0 (calc ) 1.1-2. 5 low Not Available [facility] [address] [place] [address], [address], 09/13/2024 10:51:13 09/13/19 25 09/13/2024 COMP. METAB OLIC PANEL bilirubin, total 0.3 mg/dL 0.1-1. 2 normal Not Available [facility] [address] [place] [address], [address], 09/13/2024 10:51:13 09/13/19 25 09/13/2024 COMP. METAB OLIC PANEL alkaline phosphatase 130 U/L 30-121 high Not Available [facility] [address] [place] [address], [address], 09/13/2024 10:51:13 09/13/19 25 09/13/2024 COMP. METAB OLIC PANEL AST 20 U/L 0-32 normal Not Available [facility] [address] [place] [address], [address], 09/13/2024 10:51:13 09/13/19 25 09/13/2024 COMP. METAB OLIC PANEL ALT 28 U/L 0-33 normal Not Available [facility] [address] [place] [address], [address], 09/13/2024 10:51:13 09/13/19 25 09/13/2024 COMP. METAB OLIC PANEL GFR 94 >= 60 normal NOT E New calcu latio n for GFR (CKD- EPI 2020) is formu lated witho ut race adjus tment facto rs at the recom menda tion of the [facility] and [facility] ty of Nephr ology . This calcu latio n has not been valid ated in pregn ant women . For pedia tric patie nts refer to https ://yordan isidro.o rg/pr marlyess ional s/KDO QI/gf r_cal culat orPed Not Available [facility] [address] [place] [address], [address], 09/13/2024 10:51:13 09/13/19 25 09/13/2024 LIPID PROFI LE HDL cholesterol 56 mg/dL 50-242 normal Not Available [facility] [address] [place] [address], [address], 09/13/2024 10:51:16 09/13/19 25 09/13/2024 LIPID PROFI LE triglyceride s 83 mg/dL 0-149 normal TRIGL YCERI DE RANGE S JU L: < 150 BORDE RLINE HIGH: 150 - 199 HIGH: 200 - 499 VERY HIGH: > OR = 500 Not Available [facility] [address] [place] [address], [address], 09/13/2024 10:51:16 09/13/19 25 09/13/2024 LIPID PROFI LE cholesterol 166 mg/dL 0-199 normal AIDAN STERO L (TOTA L) RANGE S LI ABLE: < 200 BORDE RLINE : 200 - 239 HIGHE R RISK: > 239 Not Available [facility] [address] [place] [address], [address], 09/13/2024 10:51:16 09/13/19 25 09/13/2024 LIPID PROFI LE LDL cholesterol 93 mg/dL _(lyndsey c) 0-99 normal LDL AIDAN STERO L RANGE S OPTIM AL: < 100 NEAR/ ABOVE OPTIM AL: 100 - 129 BORDE RLINE HIGH: 130 - 159 HIGH: 160 - 189 VERY HIGH: > OR = 190 Not Available [facility] [address] [place] [address], [address], 09/13/2024 10:51:16 09/13/1909/13/2024 TSH TSH 0.921 u[IU] /mL 0.270- 4.200 normal Not Available [facility] [address] [place] [address], [address], 09/13/2024 10:55:09 09/13/19 25 09/13/2024 MICRO ALBUM IN/CR EAT RATIO microalbumin , random 93 mg/L 0-19 high Not Available [facility] [address] [place] [address], [address], 09/13/2024 11:36:10 09/13/19 25 09/13/2024 MICRO ALBUM IN/CR EAT RATIO creatinine,u r,random 86 mg/dL normal NO JU L RANGE ESTAB LISHE D FOR RANDO M URINE . Not Available [facility] [address] [place] [address], [address], 09/13/2024 11:36:10 09/13/19 25 09/13/2024 MICRO ALBUM IN/CR EAT RATIO MA/creatinin e ratio 108 mcg/m g_cre at 0-29 high Not Available [facility] [address] [place] [address], [address], 09/13/2024 11:36:10 09/13/19 25 09/13/2024 hemog lobin A1C, finge rstic k hemoglobin A1C % 10.2 % 4.0 - 5.6 Not Available [facility] [address] [place], [address], 09/13/2024 08:59:31 09/13/19 25 09/13/2024 gluco se, finge rstic k, blood glucose, fingerstick 187 mg/dL 70 - 100 Not Available [facility] [address] [place], [address], 09/13/2024 08:54:26 09/28/19 25 09/28/2024 gluco se, finge rstic k, blood glucose, fingerstick 109 mg/dL 70 - 100 Not Available [facility] [place] [address] [place] [address], [address], 09/27/2024 08:01:28 11/10/19 25 11/09/2024 urina lysis panel , auto Unknown Analyte Clean Catch Not Available [facility] [address], [address], 11/09/2024 11:37:55 11/10/19 25 11/09/2024 urina lysis panel , auto Unknown Analyte Yellow Not Available [facility] [address], [place], [address], 11/09/2024 11:37:55 11/10/19 25 11/09/2024 urina lysis panel , auto Unknown Analyte Clear Not Available [facility] [address], [address], 11/09/2024 11:37:55 11/10/19 25 11/09/2024 urina lysis panel , auto Unknown Analyte 1.015 Not Available [facility] [address], [place], [address], 11/09/2024 11:37:55 11/10/19 25 11/09/2024 urina lysis panel , auto Unknown Analyte 1.003 - 1.030 Not Available [facility] [address], [place], [address], 11/09/2024 11:37:55 11/10/19 25 11/09/2024 urina lysis panel , auto Unknown Analyte 6.0 Not Available [facility] [address], [place], [address], 11/09/2024 11:37:55 11/10/19 25 11/09/2024 urina lysis panel , auto Unknown Analyte 5.0 - 8.0 Not Available [facility] [address], [place], [address], 11/09/2024 11:37:55 11/10/19 25 11/09/2024 urina lysis panel , auto Unknown Analyte Negati ve Not Available [facility] [address], [place], [address], 11/09/2024 11:37:55 11/10/19 25 11/09/2024 urina lysis panel , auto Unknown Analyte Negati ve Not Available [facility] [address], [place], [address], 11/09/2024 11:37:55 11/10/19 25 11/09/2024 urina lysis panel , auto Unknown Analyte Negati ve Not Available [facility] [address], [place], [address], 11/09/2024 11:37:55 11/10/19 25 11/09/2024 urina lysis panel , auto Unknown Analyte Negati ve Not Available [facility] [address], [place], [address], 11/09/2024 11:37:55 11/10/19 25 11/09/2024 urina lysis panel , auto Unknown Analyte Negati ve Not Available [facility] [address], [place], [address], 11/09/2024 11:37:55 11/10/19 25 11/09/2024 urina lysis panel , auto Unknown Analyte Negati ve Not Available [facility] [address], [place], [address], 11/09/2024 11:37:55 11/10/19 25 11/09/2024 urina lysis panel , auto Unknown Analyte Normal Not Available [facility] [address], [place], [address], 11/09/2024 11:37:55 11/10/19 25 11/09/2024 urina lysis panel , auto Unknown Analyte Normal Not Available [facility] [address], [place], [address], 11/09/2024 11:37:55 11/10/19 25 11/09/2024 urina lysis panel , auto Unknown Analyte Negati ve Not Available [facility] [address], [place], [address], 11/09/2024 11:37:55 11/10/19 25 11/09/2024 urina lysis panel , auto Unknown Analyte Negati ve Not Available [facility] [address], [place], [address], 11/09/2024 11:37:55 11/10/19 25 11/09/2024 urina lysis panel , auto Unknown Analyte Normal Not Available [facility] [address], [place], [address], 11/09/2024 11:37:55 11/10/19 25 11/09/2024 urina lysis panel , auto Unknown Analyte Normal Not Available [facility] [address], [place], [address], 11/09/2024 11:37:55 11/10/19 25 11/09/2024 urina lysis panel , auto Unknown Analyte Negati ve Not Available [facility] [address], [place], [address], 11/09/2024 11:37:55 11/10/19 25 11/09/2024 urina lysis panel , auto Unknown Analyte Negati ve Not Available [facility] [address], [place], [address], 11/09/2024 11:37:55 11/10/19 25 11/09/2024 urina lysis panel , auto Unknown Analyte Negati ve Not Available [facility] [address], [place], [address], 11/09/2024 11:37:55 11/10/19 25 11/09/2024 urina lysis panel , auto Unknown Analyte Negati ve Not Available [facility] [address], [place], [address], 11/09/2024 11:37:55 12/01/19 25 11/30/2024 hemog lobin A1C, finge rstic k hemoglobin A1C % 6.5 % 4.0 - 5.6 Not Available [facility] [place] [address] [place] [address], [address], 11/30/2024 10:46:30 12/01/19 25 11/30/2024 gluco se, finge rstic k, blood glucose, fingerstick 88 mg/dL 70 - 100 Not Available [facility] [address] [place], [address], 11/27/2024 15:26:23 09/28/19 25 09/28/2024 US, neck, soft tissu e [facility] [address] [place] [address] Patirocio t Name: ARLEN dillard : 1969 Patirocio t Orderi ng Provid er: KAVON RUSSO EXAM DATE: 2024 EXAM: US ECHO THYROI D OR PAROTI D CLINIC AL INFORM ATION: Dyspha rommel TECHNI QUE: Multip le sonogr aphic images of the thyroi d gland were obtain ed. COMPAR RUSS: None. FINDIN GS: Isthmu s measur es 0.3 cm in thickn ess. Right lobe measur es 4.5 x 1.9 x 1.4 cm. Left lobe measur es 4.4 x 1.8 x 1.7 cm. The gland is normal in size and homoge neous in echote xture. Nodule s: 1. Right nodule measur ing 5 x 3 x 4 mm, comple x cystic 2. Right nodule measur ing 5 x 3 x 6 mm, cystic 3. Left nodule measur ing 8 x 5 x 8 mm, comple x cystic 4. Left nodule measur ing 4 x 3 x 5 mm, possib ly spongi form IMPRES BOLIVAR: Subcen timete r benign -appea ring bilate ral thyroi d nodule s Interp reted By: Rasheed Hanson MD Electr onical ly Signed By: Rasheed Hanson MD on 2:43 PM [facility] [address], [address], 10/02/2024 10:14:44 11/10/1911/09/2024 US, retro perit oneum , limit ed [address] [address] Patien t Name: ARLEN dillard : 1969 Patien t Orderi ng Provid er: TJ MODI EXAM DATE: 2024 EXAM: US KIDNEY BILAT WO BLADDE R CLINIC AL INFORM ATION: Renal cyst TECHNI QUE: Multip le sonogr aphic images of both kidney s were obtain ed. COMPAR RUSS: 024 FINDIN GS: RIGHT KIDNEY : Length = 11.7 cm. No hydron ephros is, mass or stone. There is a 3.2 x 3.3 x 3 cm cyst, and a 1.2 x 1.2 x 1.1 cm cyst. LEFT KIDNEY : Length = 11.8 cm. No hydron ephros is, mass or stone. There is a 3 x 2.2 x 2.2 cm cyst. IMPRES BOLIVAR: Bilate ral renal cysts with benign ultras ound featur es Interp reted By: Rasheed Hanson MD Electr onical ly Signed By: Rasheed Hanson MD on 10:36 AM [facility] [address] [place] [address], [address], 11/09/2024 12:53:39 Result Notes None recorded. Problems Name Problem SNOMED Code Status Onset Date Resolution Date Notes Provider Name and Address Organization Details Recorded Time Chest pain 60346127 Active 2015 Provide r: Corry Jimenez atus: Active Not Available [facility] 6 09:15:25 Palpitations 28775156 Active 2015 Provide r: Corry Jimenez atus: Active Not Available [facility] 6 09:15:25 Multiple renal cysts 740501795 Active 2023 TJ WEBB JR, MD [address] [place] [address], [address] , [facility] 4 09:28:36 Abdominal pain 55986350 Active 2023 TJ WEBB JR, MD [address] [place] [address], [address] , [facility] 4 09:28:47 Problem Notes Documentation Provider Name and Address Organization Details Recorded Time Clinical Research Nurse/dietitian Consu lt Note : [facility] [address] [place] [address] Arlen Zavala 54yo F 1970 #[id number] __RESTYLEDFOOTER__ [facility] [address] [place] [address] , Date: 09/28/2024RE: Arlen Zavala, : 1970, PT ID #[id number] Ht: 5 ft Wt: 187 lbs Stated BMI: 36.5 Medications Reviewed Medications NameDate Source Advair Diskus 250 mcg-50 mcg/dose powder for inhalationTwo times a day07/17/16 entered [employer].221 albuterol gapktah35/25/24 entered Finn Carl atorvastatin 20 mg tabletTake 1 tablet(s) every day by oral route.12/09/23 entered Finn Carl Bystolic 5 mg eiqwibKvndt44/02/16 entered usffi.223 UtC4831/25/24 entered Finn Carl HumaLOG KwikPen (U-100) Insulin 100 unit/mL subcutaneousInject 6 units 3 times a day by subcutaneous route before meal(s)09/13/24 prescribed KAVON RUSSO APRN lisinopriL 10 mg-hydrochlorothiazide 12.5 mg tikfxuOnqjn65/02/16 [facility] lisinopriL 20 mg-hydrochlorothiazide 25 mg tabletTake 1 tablet(s) every day by oral route.12/09/23 entered Finn Carl zfvCDNJRJ58/25/24 entered Finn Carl metFORMIN ER 500 mg tablet,extended release 24 hrTake 1 tablet(s) twice a day by oral route for 90 days.09/28/24 prescribed KAVON RUSSO APRN oxyCODONE-acetaminophen 7.5 mg-325 mg tabletTake by oral route for 8 days.03/29/24 auth requested TJ WEBB JR, MD Premarin 0.9 mg opjivtZtuxi67/06/16 entered [facility] ProAir HFA 90 mcg/actuation aerosol clwkehc00/04/16 entered [facility] Tresiba FlexTouch U-100 insulin 100 unit/mL (3 mL) subcutaneous penInject 22 unit(s) every day by subcutaneous route in the morning for 30 days.09/28/24 prescribed KAVON RUSSO APRN Trulicity 0.75 mg/0.5 mL subcutaneous pen injectorInject 0.75 mg every week by subcutaneous route.09/28/24 prescribed KAVON RUSSO APRN Social HistorySocial History not reviewed (last reviewed 09/28/2024) Substance UseDo you or have you ever smoked tobacco?: Never smokerDo you or have you ever used any other forms of tobacco or nicotine?: NoWhat was the date of your most recent tobacco screening?: 09/28/2024Has tobacco cessation counseling been provided?: NoWhat is your level of alcohol consumption?: NoneDo you use any illicit or recreational drugs?: NoEducation and OccupationWhat 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 Pt reports eating 2 meals w/ snacks (usually skipping lunch). Pt reports frequency of eating out approximately 0-1x/ wk from [employer], [employer], [employer] or [employer]. Pt reports biggest challenge as I put it on so easy...taking if off is the hard part ( Pt referring to weight), I like healthy foods . Pt reports paying attention to food choices by low carb (restricting-unsure of amounts ), no soda, drink coffee, milk, limit sweets. No reports of participation in weight loss program or cultural diet influence at this time. 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 ~30-90 minutes a day. Has physician limited physical activity in any way? No Understanding of condition: Fair Beliefs and Attitudes: Cultural diet: No Willingness to make changes: Pt is willing to make changes Barriers to Behavior Change: None reported at this time. Nutritional Diagnosis Inconsistent carbohydrate intakeRelated to food-related knowledge deficit, skipped meals, food choice/selection, and portions, as evidenced by HA1c 10.2% and 24-hr dietary recall/nutritional assessment questionnaire. Intervention: Nutritional/Diet Recommendations: Consistent carbohydrate meal plan for diabetes control. 3 meals per day. Avoid missing meals. 30-45 grams carbohydrate per meal and 15-20 grams for snacks per ADA recommendations Read food labels for serving sizes and total carbohydrate for improving carb consistency at meals. Avoid concentrated sweets and sugary beverages Increase non starchy vegetables and choose lean protein for heart health Improve balance of dinner meal including protein, carbohydrate and vegetable Reduce portions of starches and increase portions of nonstarchy vegetables Avoid high fat foods and fried foods Increase physical activity for weight loss, improved BG control, and overall health Nutrition Education: Reviewed dietary history today with pt. Encouraged pt to not skip meals and promoted three meals daily. Instructed pt on carbohydrates, foods that contained carbohydrates, their role in the body and basic DM pathophysiology Instructed pt on consistent carbohydrate diet to achieve better BG control and provide adequate energy. Encouraged pt to reach a goal of 45 gms of carbohydrates at each meal, focusing on healthy complex carbohydrates. Encouraged healthy carbohydrate/protein snacks consisting of 15-30 gm carbohydrate Discussed incorporating lean protein at each meal. Instructed pt on carbohydrate counting, reading food labels, portion sizes and meal planning. Demonstrated proper portions through the use of food models (Plate Method). Encouraged pt to avoid concentrated sweets and sugary beverages. Discussed moderation and balancing healthy choices with calorie-dense foods. Discussed meal planning and options for improving current meals to meet recommendations. Pt was receptive to suggestions Reviewed goal fasting blood sugar 80-130. RD to evaluate nutritional education needs at follow-up appt. Pt agreeable to keeping food logs for next session. Patient Goals: 3 meals consisting of 30-45 grams carbohydrates and 30-35 grams protein per meal. Understanding of education: Pt asked appropriate questions and verbalized understanding Patient education materials provided: Planning Healthy Meals Reading Food Labels Food Logs Follow-up: Healthy Eating! Handout, fastfoodnutrition.org, cookingmatters.org Monitoring and Evaluation: Follow up plan: 6 weeks Provided patient with RD contact info and encouraged patient to contact RD with any questions.Counseling Visit Length 60 minutes Assessment/Plan1. Uncontrolled type 2 diabetes [id number]: Type 2 diabetes mellitus with hyperglycemia Return to Office ULTRASOUND for ULTRASOUND at RADIOLOGY [facility] on 09/28/2024 at 02:30 PM TJ WEBB JR, MD for RECHECK at [facility] on 11/09/2024 at 11:[address], LD for MNT FOLLOW-UP at [facility] on 11/09/2024 at 01:00 PM ULTRASOUND for ULTRASOUND at RADIOLOGY [facility] on 11/09/2024 at 10:30 AM KAVON RUSSO APRN for RECHECK at ENDOCRINOLOGY [facility] on 11/30/2024 at 09:45 AM KAVON RUSSO APRN [address] [place] [address], [phone], [facility] 09/28/2024 12:49:06 Clinical Research Nurse/dietitian Consu Note : [facility] [address] [place] [address] Arlen Zavala 54yo F 1970 #[id number] __RESTYLEDFOOTER__ [facility] [address] [place] [address] , Date: 11/09/2024RE: Arlen Zavala, : 1970, PT ID #[id number] Ht: 5 ft Wt: 192 lbs 6.4 oz With clothes BMI: 37.6 Medications Medications not reviewed (last reviewed 09/28/2024) NameDate Source Advair Diskus 250 mcg-50 mcg/dose powder for inhalationTwo times a day07/17/16 entered arsen.221 albuterol ubybssq84/25/24 entered Finn Carl atorvastatin 20 mg tabletTake 1 tablet(s) every day by oral route.12/09/23 entered Finn Carl Bystolic 5 mg exhfcdQcffl80/02/16 entered Liquid Accountskris.223 WsZ6161/25/24 entered Finn Carl HumaLOG KwikPen (U-100) Insulin 100 unit/mL subcutaneousInject 6 units 3 times a day by subcutaneous route before meal(s)09/13/24 prescribed KAVON RUSSO APRN lisinopriL 10 mg-hydrochlorothiazide 12.5 mg bjvtxsKobdu58/02/16 entered kris.227 lisinopriL 20 mg-hydrochlorothiazide 25 mg tabletTake 1 tablet(s) every day by oral route.12/09/23 entered Finn Carl metFORMIN ER 500 mg tablet,extended release 24 hrTake 1 tablet(s) twice a day by oral route for 90 days.09/28/24 prescribed KAVON RUSSO APRN oxyCODONE-acetaminophen 7.5 mg-325 mg tabletTake by oral route for 8 days.03/29/24 auth requested TJ WEBB JR, MD Premarin 0.9 mg tiddotYarlf42/06/16 entered ushaffi.264 ProAir HFA 90 mcg/actuation aerosol bshxumq79/04/16 entered ushaffi.245 Tresiba FlexTouch U-100 insulin 100 unit/mL (3 mL) subcutaneous penInject 22 unit(s) every day by subcutaneous route in the morning for 30 days.09/28/24 prescribed KAVON RUSSO APRN Trulicity 0.75 mg/0.5 mL subcutaneous pen injectorInject 0.75 mg every week by subcutaneous route.09/28/24 prescribed KAVON RUSSO APRN Social HistorySocial History not reviewed (last reviewed 09/28/2024) Substance UseDo you or have you ever smoked tobacco?: Never smokerDo you or have you ever used any other forms of tobacco or nicotine?: NoWhat was the date of your most recent tobacco screening?: 09/28/2024Has tobacco cessation counseling been provided?: NoWhat is your level of alcohol consumption?: NoneDo you use any illicit or recreational drugs?: NoEducation and OccupationWhat 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 Pt now weighs 192.4. Pt has gained 5.4# since initial session. Food and Nutrition intake/adherence to meal plan: Pt self reports updated from primary care provider Dr. Estrada's office is 7.4% (now) down from 10.2% at time of referral. Pt reports getting more fruit, and making attempts at eating more balance meals (working on getting enough protein and carbs) . Pt reports that she tries to get 30 grams carbs and 30 grams protein, RD to review mealtime goal with pt and their importance. Patient Goals follow up: 3 meals consisting of 30-45 grams carbohydrates and 30-35 grams protein per meal: In progress, not met. 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 Nutritional DiagnosisInconsistent carbohydrate intake Related to food-related knowledge deficit, skipped meals, food choice/selection, and portions, as evidenced by HA1c 10.2% and 24-hr dietary recall/nutritional assessment questionnaire. Intervention: Nutritional/Diet Recommendations: Consistent carbohydrate meal plan for diabetes control. 3 meals per day. Avoid missing meals. 30-45 grams carbohydrate per meal and 15-20 grams for snacks per ADA recommendations Read food labels for serving sizes and total carbohydrate for improving carb consistency at meals. Avoid concentrated sweets and sugary beverages Increase non starchy vegetables and choose lean protein for heart health Improve balance of dinner meal including protein, carbohydrate and vegetable Reduce portions of starches and increase portions of nonstarchy vegetables Avoid high fat foods and fried foods Increase physical activity for weight loss, improved BG control, and overall health Nutrition education: RD reviewed nutritional goals with pt, highlighting sources of carbohydrates and using [[employer]] website when necessary to review nutrition labels of product purchases and make suggestions for substitutes to help find balance at mealtimes. RD introduced pt to [SimplyCast] as a resource to use when dining out to help pt make informed decisions about food choices/selections at these establishments. RD encouraged pt to use resources like [I[employer]osis.[facility] Plus] to help generate meal ideas. This education-based program incorporates whole grains, lean proteins, fruits, vegetables, lean protein, and low-fat dairy products within its affordable recipes. RD to evaluate nutrition education needs at follow-up appt. Patient Goals: Continue until goal met: 3 meals consisting of 30-45 grams carbohydrates and 30-35 grams protein per meal Understanding of education: Pt asked appropriate questions and verbalized understanding Patient education materials provided: Healthy Eating! Handout [employer] Plus Monitoring and Evaluation:Follow up plan: Pt not scheduled for follow-up at this time, Pt want to meet with her primary. RD provided contact details. Provided patient with RD contact info and encouraged patient to contact RD with any questions.Counseling Visit Length 30 minutes Assessment/Plan1. Hyperglycemia due to type 2 diabetes [id number]: Type 2 diabetes mellitus with hyperglycemia Return to Office ULTRASOUND for ULTRASOUND at RADIOLOGY [facility] on 11/09/2024 at 10:30 AM KAVON RUSSO APRN for RECHECK at ENDOCRINOLOGY [facility] on 11/30/2024 at 09:45 AM KAVON RUSSO APRN [address] [place], [address], [facility] 11/09/2024 15:42:55 Procedures Surgical History Date Name Laterality Status Provider Name and Address Organization Details Recorded Time 11/10/19 MNT Follow Up Visit completed HARDIK DOZIER RD, LD [address] [place], [phone] [address] 11/09/2024 15:37:35 09/28/19 MNT Initial Visit completed HARDIK DOZIER RD, LD [address] [place], [phone] [address] 09/28/2024 12:08:29 extraocular muscle repair completed [facility] 12/09/2023 12:27:21 Hysterectomy completed [facility] 12/09/2023 12:27:30 Myomectomy completed [facility] 12/09/2023 12:27:38 Imaging Results None recorded. Procedure Notes None recorded. Medical Equipment None Reported. Allergies Allergen ID Allergen Name Allergen Category Reaction Reaction Severity Criticality Documentation Date Start Date Code Code System Note Provider Name and Address Organization Details Recorded Time 400874 progester one medicatio n Not available Not available Not available 07/10/20162014 8727 RxNorm Comme nt: Creat ed By: Micheal melgozaCre ated Date: 2014 8:51: 26 AM; Not Available [facility] 6 09:50:36 [id number] miconazol e nitrate medicatio n rash Not available Not available 07/10/20162014 52057 RxNorm React ion: RASH; Comme nt: Creat ed By: Micheal melgozaCre ated Date: 2014 8:51: 05 AM; Not Available [facility] 6 10:11:58 Medications Name Sig Start Date Stop Date Status Note LastModified by Organization Details LastModified Time atorvasta tin 20 mg tablet Take 1 tablet every day by oral route. active Not Available Not Available No t Available doxazosin 1 mg tablet Take 1 tablet every day by oral route. 04/20 completed Not Available Not Available Not Available amlodipin e 10 mg tablet Take 1 tablet every day by oral route. 04/20 completed Not Available Not Available Not Available Advair Diskus 250 mcg-50 mcg/dose powder for inhalatio n Two times a day active Duration : 30 days;Teto quency: bid;Medi cation Descript ion: fluticas one-salm eterol; Dosage:1 inhalati on; Route:in halation ; refills: 0; Quantity :1 powder Not Available Not Available Not Available lisinopri l 20 mg-hydroc hlorothia zide 25 mg tablet Take 1 tablet every day by oral route. active Not Available Not Available No t Available lisinopri l 10 mg-hydroc hlorothia zide 12.5 mg tablet Daily active Frequenc y: daily;Me dication Descript ion: hydrochl orothiaz kulwant-boris nopril; Dosage:2 ; Route:or al; refills: 12; Quantity :30 tablet Not Available Not Available Not Available oxycodone -acetamin ophen 7.5 mg-325 mg tablet Take by oral route for 8 days. 2023 active Not Available Not Available Not Avai lable metformin ER 500 mg tablet,ex tended release 24 hr Take 1 tablet twice a day by oral route for 90 days. 2024 active Not Available Not Available Not Avai lable Novolog FlexPen U-100 Insulin aspart 100 unit/mL (3 mL) subcutane ous Inject 6 units 3 times a day by subcutan eous route before meal(s) for 30 days. 09/13 completed Not Available Not Available Not Available Premarin 0.9 mg tablet Daily active Duration : 10 days;Teto quency: daily;Me dication Descript ion: conjugat ed estrogen s; Dosage:1 ; Route:or al; refills: 0; Quantity :21 tablet Not Available Not Available Not Available albuterol sulfate active Not Available Not Available Not Available metformin 11/09 completed Not Available Not Available Not Available CoQ10 active Not Available Not Availa ble Not Available ProAir HFA 90 mcg/actua tion aerosol inhaler active Medicati on Descript ion: albutero l; Dosage:a s directed ; Route:in halation ; refills: 0 Not Available Not Available Not Available Bystolic 5 mg tablet Daily active Frequenc y: daily;Me dication Descript ion: nebivolo l; Dosage:1 ; Route:or al; refills: 0; Quantity :30 tablet Not Available Not Available Not Available Humalog KwikPen (U-100) Insulin 100 unit/mL subcutane ous Inject 6 units 3 times a day by subcutan eous route before meal(s) 2024 active replaces novolog Not Available Not Available Not Available Victoza 2-Drake 09/13 completed Not Available Not Available Not Available Trulicity 1.5 mg/0.5 mL subcutane ous pen injector INJECT 1 SYRINGE SUBCUTAN EOUSLY ONCE A WEEK 2024 active Not Available Not Available Not Avai lable Trulicity 0.75 mg/0.5 mL subcutane ous pen injector Inject 0.75 mg every week by subcutan eous route. 2024 active Not Available Not Available Not Avai lable Tresiba FlexTouch U-100 insulin 100 unit/mL (3 mL) subcutane ous pen Inject 24 units every day by subcutan eous route in the morning for 30 days. 2024 active Not Available Not Available Not Avai lable Vitals Date Recorded Body height Body mass index (BMI) Body weight Provider Name and Address Organization Details Last Updated DateTime 09/28/2024 152.4 cm 36.5 kg/m2 43287.77 g HARDIK DOZIER, RD, LD [address] [place], [address], [facility] 09/28/2024 10:21:24 Date Recorded Body height Body mass index (BMI) Body weight Heart rate Systolic And Diastolic Provider Name and Address Organization Details Last Updated DateTime 09/28/2024 152.4 cm 36.5 kg/m2 78350.77 g 72 /min 138/82 mm[Hg] Tiera Parnell [facility] 09/28/2024 09:23:20 Date Recorded Body height Body mass index (BMI) Body weight Provider Name and Address Organization Details Last Updated DateTime 11/09/2024 152.4 cm 37.6 kg/m2 59114.17 g HARDIK DOZIER, RD, LD [address] [place], [address], [facility] 11/09/2024 13:05:07 Date Recorded Body height Body mass index (BMI) Body weight Provider Name and Address Organization Details Last Updated DateTime 11/09/2024 152.4 cm 35.2 kg/m2 15829.63 g Jayleen Sukumar [facility] 11/09/2024 11:30:13 Date Recorded Body height Body mass index (BMI) Body weight Heart rate Systolic And Diastolic Provider Name and Address Organization Details Last Updated DateTime 11/30/2024 152.4 cm 36.9 kg/m2 98729.96 g 70 /min 142/78 mm[Hg] Bell Paige [facility] 11/30/2024 10:42:28 Social History Question Answer Notes LastModified by [employer] Details LastModified Time Tobacco Smoking Status [facility]/09/2023 12:26:08 What Was The Date Of Your Most Recent Tobacco Screening? 09/28/2024 [email or web address] Information not available 09/28/2024 What Is Your Relationship Status? [email or web address] Information not available 12/09/2023 Has Tobacco Cessation Counseling Been Provided? No [email or web address] Information not available 12/09/2023 Sex: Female Functional Status Question Answer Note LastModified by [employer] Details LastModified Time Do you use any illicit or recreational drugs? No [email or web address] Information not available 12/09/2023 Do you or have you ever used any other forms of tobacco or nicotine? No [email or web address] Information not available 12/09/2023 What is your level of alcohol consumption? None Information not available 12/09/2023 Are you currently employed? 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 Family History Relationship Description Onset Age of this Age Resolved Age Notes LastModified by Organization Details LastModified Time Maternal Grandmother Diabetes mellitus [email or web address] Not available 11/15 12:08:21 Paternal Grandmother Malignant neoplasm of liver [email or web address] Not available 11/15 12:08:33 Father Diabetes mellitus [email or web address] Not available 11/15 12:08:46 Father Kidney disease [email or web address] Not available 11/15 12:09:11 Medical History Condition Response Pancreatitis N Gout N Thyroid Disease N Macular Degeneration N Kidney Stones N Hyperthyroidism N Heart Arrhythmia N Emphysema N Hernia N COPD N Depression N Glaucoma N Hypothyroidism N Pneumonia N Thyroid nodule mass N Anxiety Disorder N Hypercalcemia N Arthritis N Esophagus/swallowing trouble Y Shingles N Acid Reflux (GERD) Y Cancer N Hypoglycemia N Stroke N Thyroid cyst N Alcohol Overuse/Alcohol Abuse N High Cholesterol N Skin Cancer N Liver Disease N Kidney Disease N Allergies/Hayfever N Heart Problems N Black Lung N Gallbladder Disease N Migraines N Kidney or Bladder Problems Y Goiter N Nervous Breakdown N Chest Pain N Stomach trouble N Colon Polyps N Heart Attack ([place]) N Ulcers N Osteopenia N Diabetes Y Rheumatic Fever N High triglycerides N Bleeding Disorder N Tuberculosis N AIDS/HIV N Congestive Heart Failure (CHF) N Diverticulitis N Asthma Y Cataract N Epilepsy/Seizures N Sleep Apnea N Hypertension Y Osteoporosis N Gynecological HistoryNo gynecological history recorded. Obstetrics History GPAL:G 0 P 0 0 0 0 Immunizations Vaccine Type Date Status Note Provider Nam e and Address Organization Details Recorded Time Tdap 11/29/2018 completed [facility] 09/28/2024 09:18:24 Past Encounters Encounter ID Performer Location Encounter Start Date Encounter Closed Date Diagnosis/Indication Diagnosis SNOMED-CT Code Diagnosis ICD10 Code Diagnosis Note [id number] MD VAL BATRES JR, [facility] [address] [place] [address] 12/09/2023 10:56:45 12/09/2023 11:26:39 Multiple renal cysts 720968449 N28.1 . Consider cyst decorticat ion , depending on ultrasound findings. Abdominal pain [id number] R10.9 [id number] MD VAL BATRES JR, [facility] [address] [place] [address] 02/03/2024 15:49:03 02/03/2024 16:12:42 Multiple renal cysts [id number] N28.1 . Consider cyst decorticat ion , depending on ultrasound findings. [id number] MD VAL BATRES JR, [facility] [address] [place] [address] 04/20/2024 11:45:26 04/25/2024 04:34:08 Multiple renal cysts [id number] N28.1 [id number] KAVON RUSSO, [facility] [address] [place] [id number] 09/13/2024 08:26:51 09/13/2024 10:42:59 Uncontrolled type 2 diabetes mellitus [id number] E11.65 In the office today A1c 10.2%.[place] point-of-c are blood glucose of 187 in the office today.Free style CGM readings reviewed, scanned into chart, and with the below:Time CGM active: 69%Average glucose: 247GMI: 9.2%>250= 40%181-250 = 49%70-180= 11%<69= 0% Goal A1c is less than 7%Goal blood glucose: Before meals and upon awakenin-130. 1-2 After meals or at bedtime: < 180. Discussed in detail the consequenc es of uncontroll ed hyperglyce vahe in the form of microvascu lar complicati ons such as diabetic retinopath y, worsening of diabetic nephropath y, diabetic neuropathy and macrovascu lar complicati ons such as coronary artery disease, peripheral arterial disease and stroke.Edu cated on the importance of dietary carbohydra te consistenc y and restrictio n and not to exceed 45 g of carbohydra te per meal and 15-30 g per snack if needed.Edu cated on signs and symptoms of hypoglycem ia, and what to do if patient is effected by it including: Blood glucose less than 70, drink 6 ounces of soda/juice , glucose and recheck 15 minutes later. If blood glucose still less than 70 repeat until above 70. Once greater than 70 follow-up with protien. Recommenda tions:Rout ine labs todayConti nue Trulicity 0.75mg weeklyChan ge Metformin to 500mg Extended Release twice a day.Start Tresiba 18 units every morning. Increase by 2 units every three days for goal morning blood sugar between 80-130. Max daily dose 50 units (patient educated on this medication , potential side effects, and how to administer with demo pen while in office today).Sta rt Novolog 6 units, 15 minutes prior to meals (patient educated on this medication , potential side effects, and how to administer with demo pen while in office today).Con mor Freestyle Rex CGMDiabeti c Nutrition consult.Fo llow-up in 2 weeks. Eye exam: Patient states she is up-to-date negative for diabetic retinopath y per [facility]. Records have been requested. 10 g monofilame nt test: Performed today and unremarkab le.Medical Nutrition therapy: Consult placed at today's visit. Hyperlipidemia [id number] E78.5 Will obtain up-to-date fasting lipid panel today.Cont inue current atorvastat in 20 mg daily as prescribed by PCP. Essential hypertension [id number] I10 Goal BP less than 140/90BP in office today 146/88Cont inue current lisinopril , hydrochlor othiazide daily as prescribed by PCP.Contin ue BP monitoring at home. Dysphagia [id number] R13.1 0 Patient reports having dysphagia over the last year which is progressiv dewayne getting worse. Patient denies any personal or family history of thyroid disorder. Will obtain TSH at today's visit and order thyroid ultrasound . Patient states understand ing of the above plan of care and with no questions or concerns at this time. [id number] KAVON RUSSO APRN [facility] [address] [place] [address] 09/28/2024 09:15:34 09/28/2024 09:58:32 Uncontrolled type 2 diabetes mellitus [id number] E11.65 GMI in office today of 6.3%, A1c from initial visit in office 2 weeks ago was 10.2%.[place] om point-of-c are blood glucose of 109 in the office today.Free style CGM readings reviewed, scanned into chart, and with the below:Time CGM active: 97%Average glucose: 124GMI: 6.3%>250= 0%181-250= 4%70-180= 96%<69= 0% Goal A1c is less than 7%Commende d patient on achieving better glucose control.Re -discussed in detail the consequenc es of uncontroll ed hyperglyce vahe in the form of microvascu lar complicati ons and macrovascu lar complicati ons.Sharlene dillard was re-educate d on the importance of dietary carbohydra te consistenc y and restrictio n and not to exceed 45 g of carbohydra te per meal and 15-30 g per snack if needed.Gilberto terated the signs and symptoms of hypoglycem ia, and what to do if patient is effected by it. Recommenda tions:Cont inue Trulicity 0.75mg weeklyChan ge Metformin to 500mg Extended Release twice a day.Contin ue 22 units Tresiba every morning.St op Novolog.Co ntinue Freestyle Rex CGMFollow- up in 2 months Eye exam: Patient states she is up-to-date negative for diabetic retinopath y per [facility]. Records have been requested. --Patient is with appt scheduled 10/05/[address] Mckinnon.10 g monofilame nt test: Up-to-date Medical Nutrition therapy: Consult scheduled for today.MACR was positive on August 2024 at 108 Hyperlipidemia [id number] E78.5 Fasting lipid panel from September 13, 2024 showed:Cho lesterol 166 Triglyceri raza 83 HDL 56 LDL 93Continue current atorvastat in 20 mg daily as prescribed by PCP. Essential hypertension [id number] I10 Goal BP less than 140/90BP in office today 132/82Cont inue current lisinopril , hydrochlor othiazide daily as prescribed by PCP.Contin ue BP monitoring at home. Dysphagia [id number] R13.1 0 Patient reports having dysphagia over the last year which is progressiv dewayne getting worse.Belkis ent denies any personal or family history of thyroid disorder. TSH on 09/13/2024 was 0.921Patie nt is scheduled for a thyroid ultrasound today at 2:30 PM. [id number] HARDIK DOZIER, RD, LD DIETITIAN SERVICES [facility] [place] [address] 09/28/2024 09:16:10 09/28/2024 12:09:52 Uncontrolled type 2 diabetes mellitus [id number] E11.[id number], LD DIETITIAN SERVICES [address] [place] [id number] 11/09/2024 12:37:14 11/09/2024 15:38:34 Hyperglycemia due to type 2 diabetes mellitus [id number] 11855 E11.65 [id number] TJ WEBB JR, MD [facility] [address] [place] [id number] 11/09/2024 11:07:29 11/09/2024 11:37:39 Cyst of kidney [id number] N28.1 Continue annual renal ultrasound s to monitor bilateral cysts. Benign post-surgi lyndsey pathology and no significan t recent findings. Annual follow-up scheduled. Renal impairment [id number] N28.9 Managed by primary physician and endocrinol ogist. No change in management from urology. [id number] KAVON RUSOS APRN ENDOCRINO [facility] [address] [id number] 11/30/2024 10:27:00 11/30/2024 11:02:47 Uncontrolled type 2 diabetes mellitus [id number] E11.65 In office today A1c of 6.5%, down from 10.2%.Charlotte om point-of-c are blood glucose of 88 in the office today.Free style CGM readings reviewed, scanned into chart, and with the below:Time CGM active: 94%Average glucose: 134GMI: 6.5%>250= 0%181-250= 11%70-180= 89%<69= 0% Goal A1c is less than 7%Commende d patient on achieving better glucose control.Re -discussed in detail the consequenc es of uncontroll ed hyperglyce vahe in the form of microvascu lar complicati ons and macrovascu lar complicati ons.Sharlene t was re-educate d on the importance of dietary carbohydra te consistenc y and restrictio n and not to exceed 45 g of carbohydra te per meal and 15-30 g per snack if needed.Gilberto terated the signs and symptoms of hypoglycem ia, and what to do if patient is effected by it. Recommenda tions:Incr ease Trulicity 1.5 mg weeklyChan ge Metformin to 500mg Extended Release twice a day.Contin ue 24 units Tresiba every morning.Co ntinue Freestyle Rex CGMFollow- up in 3 Eye exam: Patient states she is up-to-date negative for diabetic retinopath y per [facility]. Records have been requested. 10 g monofilame nt test: Up-to-date Medical Nutrition therapy: Consult completed 11/09/2024M ACR was positive on August 2024 at 108 Hyperlipidemia [id number] E78.5 Fasting lipid panel from September 13, 2024 showed:Cho lesterol 166Triglyc erides 83HDL 56LDL 93Continue current atorvastat in 20 mg daily as prescribed by PCP. Essential hypertension [id number] I10 Goal BP less than 140/90BP in office today 142/78Cont inue current lisinopril , hydrochlor othiazide daily as prescribed by PCP.Contin ue BP monitoring at home. Dysphagia [id number] R13.1 0 Patient reports having dysphagia over the last year which is progressiv dewayne getting worse.Belkis ent denies any personal or family history of thyroid disorder. TSH on 09/13/2024 was 0.921Patie nt is scheduled for a thyroid ultrasound today at 2:30 PM. 09/28/2024 Thyroid US shows: Isthmus measures 0.3 cm in thickness. Right lobe measures 4.5 x 1.9 x 1.4 cm. Left lobe measures 4.4 x 1.8 x 1.7 cm. The gland is normal in size and homogeneou s in echotextur e.Nodules: 1. Right nodule measuring 5 x 3 x 4 mm, complex cystic2. Right nodule measuring 5 x 3 x 6 mm, cystic3. Left nodule measuring 8 x 5 x 8 mm, complex cystic4. Left nodule measuring 4 x 3 x 5 mm, possibly spongiform IMPRESSION : Subcentime ter benign-jasvir earing bilateral thyroid nodules Health Concerns Section Related Observation LastModified by Organization Detai ls LastModified Time None Recorded Concern Status LastModified by Organization Details LastModified Time None Recorded Advance Directives Directive None Recorded Payers Insurance Date Sequence Insurance Name Policy Number Policy Martini Covered Member ID Martini Member ID Guarantor Name 02/26/2025 1 [place] ([facility]) [id number] 2 Gregorio Zavala [id number] Arlen Zavala 09/15/2018 1 DENOMINATIONAL [employer] [facility] (O) [id number] Gregorio Zavala [id number] Arlen Zavala 12/28/2023 1 [employer] ([facility]) Gregorio Pachecorin [id number] Arlen Zavala Notes Date Note Type Note Provider Name and Address Organization Details Recorded Time 09/28/2024 text/html Arlen is a 54-year-old female presents office today for follow-up on diabetes management. Patient states she is doing much better since initial visit with glucose control. She does report occasional hypoglycemia after meals stating this is directly correlated with when she administers her fast acting insulin. Apart from that patient states she remains within target range of blood sugar over 95% of the time. Patient states she has appointment with dietitian today as well as ultrasound of thyroid as was scheduled at last visit. KAVON RUSSO APRN [address] [place], [address], [facility] 09/28/2024 09:52:34 11/09/2024 text/html The patient is a 54-year-old female presenting with follow-up for renal cysts. Robotic-assisted laparoscopic bilateral renal cyst decortication was performed in March 2024, with benign pathology. A renal ultrasound on November 09, 2024, showed tiny bilateral cysts with no significant findings. 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 Yearly renal ultrasound monitoring is planned. TJ WEBB JR, MD [address] [place], [address], [facility] 11/13/2024 08:04:21 11/30/2024 text/html Arlen is a 54-year-old female presents office today for follow-up on diabetes management. Patient states she is doing significantly better since initial visit with blood sugar remaining within target range over 80% of the time. She denies any symptoms or episodes of hypoglycemia and states compliance with medication as well as lifestyle modification. Voices no questions or concerns at this time. KAVON RUSSO APRN [address], [place], [address], [facility] 11/30/2024 10:59:32 OBGyn Episode No OBEpisode recorded.
--- OUTSIDE RECORDS SUMMARY | 2025-02-26 13:39 | XMS_ITS | Clinical Summary ---
Author Organization [employer] ([place], [place], [place], [place]) Address [address] [place] [address] Care Team Providers Care Desk Director Name Role Phone Rafi Reyez MD Primary Care Provider [phone] [phone] Allergies Active Allergy Reactions Criticality Noted Date Comments Miconazole-Skin Clnsr17 10/12/2023 Hot, heart racing, hives Progesterone 10/12/2023 Cream Causes hives, rash vaginally Medications liraglutide (VICTOZA SUBQ) Inject 1.2 mg subcutaneously nightly. Active metFORMIN (GLUMETZA) 500 MG (MOD) 24 hr tablet Take 1 tablet (500 mg total) by mouth daily with breakfast. Active atorvastatin (LIPITOR) 20 MG tablet Take 1 tablet (20 mg total) by mouth daily. Active lisinopril-hyd roCHLOROthiazi de (PRINZIDE,ZEST ORETIC) 20-25 mg per tablet Take 1 tablet by mouth nightly. Active doxazosin (CARDURA) 1 MG tablet Take 1 tablet (1 mg total) by mouth nightly. Active fluticasone propion-salmet Gwyn (ADVAIR) 250-50 mcg/dose diskus inhaler Inhale 1 puff by mouth via inhaler every 12 (twelve) hours. Active albuterol HFA (VENTOLIN HFA) 90 mcg/actuation inhaler Inhale 1 puff by mouth via inhaler every 6 (six) hours as needed for wheezing. Active multivit-min/i garfield/FA/vit K/lut (CENTRUM SILVER WOMEN ORAL) Take by mouth daily. Active Lactobac no.41/Bifidoba ct no.7 (PROBIOTIC-10 ORAL) Take by mouth daily. Active calcium carbonate/leta min D3 (CALTRATE-600 PLUS VITAMIN D3 ORAL) Take by mouth daily. Active coenzyme Q10 200 mg capsule 4 Active amLODIPine (NORVASC) 5 MG tablet 2 (two) times daily. 4 Active Ozempic 0.25 mg or 0.5 mg (2 mg/3 mL) PnIj Inject 0.5 mg subcutaneously once a week Wednesday last dose was 03/11/2024. 4 Active Active Problems Problem Noted Date Diagnosed Date Acquired hypothyroidism 03/28/2024 03/28/20 24 Bilateral renal cysts 03/28/2024 Hyperlipidemia 03/28/2024 Asthma 03/28/2024 GERD (gastroesophageal reflux disease) Vitamin D deficiency 03/28/2024 S/p robotic assisted laparos copic decortication/excision of bilateral renal cysts 03/28/2024 Preop examination 03/17/2024 Diabetes mellitus 03/17/2024 Renal cyst 03/17/2024 Bilateral flank pain 03/17/2024 Asthma 03/17/2024 Hypertension 03/17/2024 Hyperlipidemia 03/17/2024 Obesity (BMI 30-39.9) 03/17/2024 Social History Tobacco Use Types Packs/Day Years Used Date Smoking Tobacco: Never Smokeless Tobacco: Never Tobacco Cessation:Counseling Given: Not Answered Alcohol Use Standard Drinks/Week Comments Not Currently 0 (1 standard drink = 0.6 oz pur e alcohol) Utilities Answer Date Recorded In the past 12 months, has t he [employer], gas, oil, or water company threatened to shut off services in your home? No 03/28/2024 Interpersonal Safety Answer Date Record ed How often does anyone, edgar torres family and friends, physically hurt you? Never 03/28/2024 How often does anyone, edgar torres family and friends, insult or talk down to you? Never 03/28/2024 How often does anyone, edgar torres family and friends, threaten you with harm? Never 03/28/2024 How often does anyone, edgar torres family and friends, scream or curse at you? Never 03/28/2024 Housing Stability Answer Date Recorded What is your living situation today? I have a [facility] place to live 03/28/[address] you li ve. Do you have problems with any of the following? None of the above 03/28/2024 Food Insecurity Answer Date Recorded Within the past 12 months, y ou worried that your food would run out before you got money to buy more. Never true 03/28/2024 Within the past 12 months, t he food you bought just didn't last and you didn't have money to get more. Never true 03/28/2024 Transportation Needs Answer Date Record ed In the past 12 months, has l ack of reliable transportation kept you from medical appointments, meetings, work or from getting things needed for daily living? No 03/28/2024 Financial Resource Strain Answer Date R ecorded How hard is it for you to pa y for the very basics like food, housing, medical care, and heating? Would you say it is: Somewhat hard 03/28/2024 Employment Answer Date Recorded Do you want help finding or keeping work or a job? I do not need or want help 03/28/2024 Family and Community Support Answer Earl e Recorded If for any reason you need h elp with day-to-day activities such as bathing, preparing meals, shopping, managing finances, etc., do you get the help you need? I don't need any help 03/28/2024 Feeling Lonely or Isolated 0 03/28 Educational Attainment Answer Date Jorge rded Do you speak a language other than [place] at [facility]? No 03/28/2024 Do you want help with school or training? For example, starting or completing job training or getting a high school diploma, GED or equivalent. No 03/28/2024 Physical Activity Answer Date Recorded Number of minutes of exercise per week 140 03/28/2024 Self Management Answer Date Recorded Because of a physical, menta l, or emotional condition, do you have serious difficulty concentrating, remembering, or making decisions? (5 years or older) No 03/28/2024 Because of a physical, menta l, or emotional condition, do you have difficulty doing errands alone such as visiting a doctor's office or shopping? (15 years or older) No 03/28/2024 Substance Use Answer Date Recorded How many times in the past y ear have you used prescription drugs for non-medical reasons? Never 03/28/2024 How many times in the past year have you used [place] legal drugs? Never 03/28/2024 Mental Health Answer Date Recorded Calculation of above two rows 1 Comments No Sex and Gender Information Value Date Recorded Sex Assigned at Female 02/10/2022 7:58 PM CDT Legal Sex Female 7:58 PM CDT Gender Identity Female 02/10/2022 7:58 PM CDT Sexual Orientation Not on file Last Filed Vital Signs Vital Sign Reading Time Taken Comments Blood Pressure 130/66 03/29/2024 5:00 PM EDT Pulse 79 03/29/2024 5:00 PM EDT Temperature 36.8 C (98.2 F) 03/29/2024 5:00 PM EDT Respiratory Rate 18 03/29/2024 5:00 PM EDT Oxygen Saturation 97% 03/29/2024 5:00 PM EDT Inhaled Oxygen Concentration - - Weight 84.7 kg (186 lb 12.8 oz) 024 11:57 AM EDT Height 152.4 cm (5') 03/17/2024 9:18 AM EDT Body Mass Index 36.48 03/17/2024 9:18 AM EDT Plan of Treatment Health Maintenance Due Date Last Done Comments CT Colonography 1972 Colonoscopy 1972 Colorectal Cancer Screening 1972 Diabetic Kidney Health Evaluation (KED) 1972 FOBT/FIT 1972 Fit-DNA (Cologuard) 1972 Sigmoidoscopy 1972 Diabetic Eye Exam 1982 Depression Screening (12+) 1984 HIV Screening 1987 Hepatitis C Screening 1990 Pneumococcal 50+ years (1 of 2 - PCV) 1991 Pap Smear 1993 Breast Cancer Screening 2012 Lipid Panel 2017 Shingles Vaccine (Zoster) (1 of 2) 2022 COVID-19 VACCINE (1 - 2023- season) 2024 Hemoglobin A1C 09/17/2024 03/17/2024 Tobacco Cessation Counseling and Screening (12+) 03/2803/28/2024 Influenza Vaccine (#1) 2025 DTAP/TDAP/TD VACCINES (2 - Td or Tdap) 11/29/2028 Procedures Procedure Name Priority Date/Time Associated Diagnosis Comments HEMOGLOBIN A1C Routine 03/17/2024 9:18 AM EDT Preop examination from Last 3 Months or Most Recently Relevant to Health Maintenance Results * (ABNORMAL) Hemoglobin A1c (03/17/2024 9:18 AM EDT) Hemoglobin A1C 7.9(H) 4.2 - 6.3 % 03/17/2024 11:29 AM EDT [facility] Comment: Hemoglobin A1C levels are related to mean glucose during the preceding 2-3 months. Less than 7% demonstrates glycemic control in diabetic patients. Hemoglobin AlC % Suggested Diagnosis > or = 6.5 Diabetic 5.7 - 6.4 Prediabetic <5.7 Non-diabetic eAVG Glucose 180.03 mg/dL 03/17/2024 11:29 AM EDT [facility] Blood Venipuncture / Unknown 03/17/2024 9:18 AM EDT 03/17/2024 10:57 AM EDT Art Poole Jr., MD LAB BLOOD ORDERABLES F inal Result [facility] [address] [phone] from Last 3 Months or Most Recently Relevant to Health Maintenance Insurance BLUE CROSS/BLUE SHIELD Care Teams Desk Director Relationship Specialty Start Date End Date Rafi Reyez MD [address] [place] [address] PCP - General Family Medicine 10/07/23
--- OUTSIDE RECORDS SUMMARY | 2025-02-26 13:40 | XMS_ITS | Encounter Summary ---
Author Organization [employer] ([place], [place], [place], [place]) Address [address] [place] [address] Care Team Providers Care Fireworks Assembly Supervisor Name Role Phone Rafi Reyez MD Primary Care Provider [phone] Encounter Details Date Type Department Care Team (Late st Contact Info) Description 10/06/2023 Outside Orders [facility] Central Scheduling [address] [place] [address] Humphrey Del Rosario MD [address] [place] [address] Sclerosis, diffuse (HCC) (Primary Dx) Social History Tobacco Use Types Packs/Day Years Used Date Smoking Tobacco: Never Assessed Utilities Answer Date Recorded In the past 12 months, has t he electric, gas, oil, or water company threatened to [...] your living situation today? I have a [facility] place to live 03/28/2024 Think about the [...] Do you speak a language other than [place] Citizen at [facility]? No 03/28/2024 Do you want help [...] Calculation of above two rows 1 Comments Unknown Sex and Gender Information Value Date Recorded Sex Assigned at Female 02/10/2022 7:58 PM CDT Legal Sex Female 7:58 PM CDT Gender Identity Female 02/10/2022 7:58 PM CDT Sexual Orientation Not on file documented as of this encounter Plan of Treatment Not on file documented as of this encounter Visit Diagnoses Diagnosis Sclerosis, diffuse (HCC)- Primary Schilder's disease documented in this encounter Care Teams Fireworks Assembly Supervisor Relationship Specialty Start Date End Date Rafi Reyez MD [address] [place] [address] PCP - General Family Medicine 10/07/23 documented as of this encounter
--- OUTSIDE RECORDS SUMMARY | 2025-02-26 13:40 | XMS_ITS | Encounter Summary ---
Author Organization [employer] ([place], [place], [place], [place]) Address [address] [place] [address] Care Team Providers Care Claims Coordinator Name Role Phone Rafi Reyez MD Primary Care Provider [phone] [phone] Reason for Referral * CAT Scan (Routine) - Closed Specialty Diagnoses / Procedures Referred By Contac t Referred To Contact Radiology Diagnoses Cyst of kidney, acquired Procedures CT FNA with imaging guidance Humphrey Del Rosario MD [address] [place] [address] Phone: tel: fax: Referral ID Status Reason Start Date Expiration Date Visits Re quested Visits Authorized [id number] Closed 10/06/2023 04/03/2024 1 1 Encounter Details Date Type Department Care Team (Late st Contact Info) Description 10/06/2023 Outside Orders [facility] Central Scheduling [address] [place] [address] Humphrey Del Rosario MD [address] [place] [address] Cyst of kidney, acquired (Primary Dx) Social History Tobacco Use Types Packs/Day Years Used Date Smoking Tobacco: Never Assessed Utilities Answer Date Recorded In the past 12 months, has t he electric, gas, oil, or water company threatened to shut off services in your home? No 03/28/2024 Interpersonal Safety Answer Date Record ed How often does anyone, inclu ding family and friends, physically hurt you? Never [...] your living situation today? I have a [facility] place to live 03/28/2024 Think about the [...] Do you speak a language other than [place] at [facility]? No 03/28/2024 Do you want help with [...] as of this encounter Plan of Treatment Scheduled Orders Name Type Priority Associated Diagnoses Orde r Schedule CT FNA with imaging guidance Imaging Routine Cyst of kidney, acquired Expected: 10/06/2023, Expires: 11/05/2023 documented as of this encounter Visit Diagnoses Diagnosis Cyst of kidney, acquired- Primary Acquired cyst of kidney documented in this encounter Care Teams Claims Coordinator Relationship Specialty Start Date End Date Rafi Reyez MD [address] [place] [address] PCP - General Family Medicine 10/07/23 documented as of this encounter
--- OUTSIDE RECORDS SUMMARY | 2025-02-26 13:41 | XMS_ITS | Data Portability ---
Author Organization [place] - [place] [facility] and [facility] Address [address] [place] [address] Care Team Providers Care Chemistry Associate Name Role Phone RASHEED ESTRADA Referring Provider [phone] Assessment No assessment recorded. Plan of Treatment Reminders Order Date Submit Date Provider Last Modified By Organization Details Last Modified Time Details Appointments None recorded. Lab None recorded. Referral None recorded. Procedures None recorded. Surgeries CT guided surgical aspiration (SURG) 2023 024 6 Not available 4 14:36:[address], abdomen + pelvis, w/wo contrast - IV . PLEASE SCHEDULE BEFORE 08/25/2023 please 2022 023 [email or web address] [facility] (Radiology), [address], [place], [address], 3 13:44:08 Medication Orders None recorded. Patient TargetsNo targets recorded. Patient InstructionsNo instructions recorded. Reason for Referral None Reported. Results Created Date Observation Date Name Description Value Unit Range Abnormal Flag Note LastModifiedBy Organization Detail LastModifiedTime 07/27/20 23 07/27/2023 BUN blood urea nitrogen 18 mg/dL 7-18 Not Available [facility] (Lab Registration) [address] [place], [address], 07/27/2023 13:47:44 07/27/20 23 07/27/2023 BUN note Unles s other [place] noted testi ng perfo rmed at: [facility] [address] [place] [address] [phone] Chaitanya ashby MD CLIA: [id number] Not Available [facility] (Lab Registration) [address] [place], [address], 07/27/2023 13:47:44 07/27/20 23 07/27/2023 CREAT ININE creatinine 0.9 mg/dL 0.6-1. 0 Not Available [facility] (Lab Registration) [address] [place], [address], 07/27/2023 13:47:46 07/27/20 23 07/27/2023 CREAT ININE estimated glom filtration rate 70 mL/mi n >60- Not Available [facility] (Lab Registration) [address] [place], [address], 07/27/2023 13:47:46 07/27/20 23 07/27/2023 CREAT ININE note Unles s other [place] noted testi ng perfo rmed at: [facility] [address] [place] [address] [phone] Chaitanya ashby MD CLIA: [id number] Not Available [facility] (Lab Registration) [address] [place], [address], 07/27/2023 13:47:46 07/05/20 23 06/25/2023 US, renal No observ ation record ed. [email or web address] [facility] [address], [place], [address], 07/07/2023 09:56:56 07/27/20 23 07/27/2023 CT ABD/p norman [facility] [address] [place] [address] Phone: Fax: Name: ARLEN SUN Exam Date: 2022 : 1969 Age 52 years Gender : F Access ion: [id number] Physic amber: FRANCES MCNULTY [place]: [place] Facili ty HSV: Outpat ient Exam: CT ABD/PE LVIS WOW CT ABDOME N AND PELVIS WITHOU T AND WITH IV CONTRA ST INDICA TION: Bilate ral renal cysts, acute left flank pain. COMPAR RUSS: None. TECHNI QUE: The patien t was inject ed with IV contra st. Axial images were obtain ed from the lung bases to the pubic symphy sis by comput ed tomogr aphy. Precon trast imagin g was also perfor med. This study was perfor med with techni ques to keep radiat ion doses as low as reason ably achiev able, (HERMAN ). Indivi dualiz ed dose reduct ion techni ques using automa drew exposu re contro l or adjust ment of mA and/or kV accord ing to the patien t size were employ ed. FINDIN GS: LUNG BASES: Clear. LIVER: Unrema rkable . GALLBL ADDER/ BILIAR Y TREE: Patien t is status post cholec ystect aleksandr. SPLEEN : No spleno megaly . ADRENA L GLANDS : Unrema rkable . PANCRE : Grossl y unrema rkable . KIDNEY S: There are bilate ral simple renal cysts. The larges t on the right measur es approx imatel y 5.3 cm. Larges t on the left measur es approx imatel y 5.7 cm. There is no obstru cting stone or hydron ephros is. BOWEL: Bowel loops are unobst ructed . There is coloni c divert iculos is withou t acute divert iculit is. REPROD UCTIVE STRUCT URES: Patien t is status post hyster ectomy . URINAR Y BLADDE R: Unrema rkable . PERITO NEUM/R ETROPE RITONE UM: No free fluid. No free air. LYMPH NODES: No retrop eriton eal adenop athy. No mesent xander adenop athy. VASCUL AR: No aortic aneury sm. BONES: No suspic ious osseou s lesion . Degene rative change s are identi fied in the spine. IMPRES BOLIVAR: Bilate ral simple renal cysts. No acute pathol ogy. The films were review ed, interp reted, and dictat ed by Dr. Ysabel Hardin Transc ribed by Siomara Moraes PA-C Dictat ed By: CECILIO HARDIN Transc ribed By: CECILIO HARDIN Transc ribed On: 2022 4:13 PM Electr onical ly signed by: CECILIO HARDIN 2022 Thank you for referr ARLEN Jean Baptiste to [facility]. Legall y authen ticate d by WILFRED HERNANDES 2022-09-27 16:13: 47 CC'ed Logic: Orderi ng Provid er: PRICILA Alexander CC Provid er: NATALIE IQBAL Attend ing Provid er: PRICILA Alexander Referr ing Provid er: PRICILA Alexander Admitt ing Provid er: PRICILA Alexander [email or web address] [facility] (Radiology) [address] [place] [address] , [place], [address], 08/31/2023 12:04:54 09/07/19 24 09/07/2023 CT guide needl e BX / asp / inj [facility] [address] [place] [address] (Phone ) DIAGNO STIC IMAGIN G REPORT ------ ------ ------ ------ ------ ------ ------ ------ ----- Sharlene t Name: ARLEN SUN t No: [id number] Medica l Record No: [id number] Date of : 1969 Access ion No: [id number] Date of Exam: 2023 Sharlene dillard Type: Outpat ient Day leiva Physic amber: FRANCES MCNULTY ------ ------ ------ ------ ------ ------ ------ ------ ----- FINAL REPORT PROCED URE: CT GUIDE NEEDLE BX / ASP / INJ CLINIC AL HISTOR Y: Bilate ral renal cyst COMPAR RUSS: 2022 FINDIN GS: CT-KAILEY DED RIGHT RENAL CYST ASPIRA TION TECHNI QUE: CT images were obtain ed to locali ze region of intere st. The right business teacher ior abdome n was preppe d in a routin e steril e fashio n and locall y anesth etized with 1% lidoca ine. Using CT guidan ce a centes is needle was direct ed toward the lesion of intere st. Access to the cyst was obtain ed. The needle was remove d and an Amplat z stiff guidew walter was placed throug h the cathet er. Serial dilati on was perfor med. An 8 Albanian pigtai l cathet er was placed within the cyst. The cyst was aspira drew comple tely, 50 cc of clear yellow tinted serous fluid was aspira drew. The 8 Albanian pigtai l cathet er was then remove d. The postpr ocedur al imagin g demons trated no signif icant compli cation . Proced ure was well tolera drew . IMPRES BOLIVAR: Techni rich succes sful CT-kailey ded right renal cyst aspira tion as above. Review ed, Interp reted and Dictat ed by Ysabel Hardin MD Transc ribed by ANDRAE Kay Authen ticate d and Electr onical ly Signed by Ysabel Hardin MD on 2023 10:53: 36 AM ABDOUL Garcia CC'ed Logic: Orderi ng Provid er: PRICILA Alexander CC Provid er: NATALIE IQBAL Attend ing Provid er: PRICILA Alexander Referr ing Provid er: PRICILA Alexander Admitt ing Provid er: PRICILA Alexander [email or web address] [facility] [address] [place] [address] [place], [address], 09/19/2023 13:03:53 Result Notes None recorded. Problems Name Problem SNOMED Code Status Onset Date Resolution Date Notes Provider Name and Address Organization Details Recorded Time Diabetes mellitus 74254372 Active 2022 MUNIRA Wu [place] [facility] [place] 3 10:32:18 Hypertensive disorder 33588033 Active 2022 MUNIRA Wu [place] [facility] [place] 3 10:32:25 Problem Notes None recorded. Procedures Surgical History Date Name Laterality Status Provider Name and Address Organization Details Recorded Time extraocular muscle repair completed Meliza DIANE [facility] [place] 07/14/2023 10:33:37 Total Hysterectomy completed Meliza Desir [place] [facility] [place] 07/14/2023 10:33:47 uterine myomectomy completed Meliza DIANE [facility] [place] 07/14/2023 10:33:58 section completed Meliza DIANE [facility] [place] 07/14/2023 10:34:11 Imaging Results None recorded. Procedure Notes None recorded. Medical Equipment None Reported. Allergies Allergen ID Allergen Name Allergen Category Reaction Reaction Severity Criticality Documentation Date Start Date Code Code System Note Provider Name and Address Organization Details Recorded Time 498993 Product containin g estrogen receptor agonist (product) medicatio n Not available Not available Not available 07/14/2023 76461 003 SNOMED MUNIRA Wu [facility] & [place] 3 10:26:07 268244 progester one medicatio n Not available Not available Not available 07/14/2023 8727 RxNorm MUNIRA Wu [place] [facility] [place] 3 10:26:13 460422 miconazol e medicatio n Not available Not available Not available 07/14/2023 6932 RxNorm MUNIRA Wu [place] [facility] [place] 3 10:26:42 Medications Name Sig Start Date Stop Date Status Note LastModified by Organization Details LastModified Time metformin 500 mg tablet TAKE 1 TABLET BY MOUTH ONCE DAILY AT NIGHT active Not Available Not Available No t Available fluticasone 250 mcg-salmete rol 50 mcg/dose blistr powdr for inhalation INHALE 1 PUFF BY MOUTH TWICE DAILY 07/14 completed Not Available Not Available Not Available atorvastati n 20 mg tablet TAKE 1 TABLET BY MOUTH ONCE DAILY active Not Available Not Available No t Available doxazosin 1 mg tablet active Not Available Not Available No t Available amlodipine 2.5 mg tablet TAKE 1 TABLET BY MOUTH ONCE DAILY 07/14 completed Not Available Not Available Not Available amlodipine 5 mg tablet active Not Available Not Available Not Available lisinopril 20 mg-hydrochl orothiazide 25 mg tablet TAKE 1 TABLET BY MOUTH IN THE MORNING active Not Available Not Available No t Available albuterol sulfate HFA 90 mcg/actuati on aerosol inhaler INHALE 2 PUFFS BY MOUTH FOUR TIMES DAILY active Not Available Not Available No t Available Advil active Not Available Not Availa ble Not Available CoQ10 active Not Available Not Availa ble Not Available BD Ultra-Fine Short Pen Needle 31 gauge x 5/16 USE WITH INJECTION S DAILY DIRECTED active Not Available Not Available No t Available Unifine Pentips 32 gauge x 5/32 needle active Not Available Not Available Not Available Victoza 3-Drake 0.6 mg/0.1 mL (18 mg/3 mL) subcutaneou s pen injector INJECT 1.2MG UNDER THE SKIN DAILY active Not Available Not Available No t Available Jardiance 10 mg tablet TAKE 1 TABLET BY MOUTH EVERY DAY IN THE MORNING 07/14 completed Not Available Not Available Not Available FreeStyle Rex 2 Sensor kit USE DIRECTED active Not Available Not Available No t Available Vitals Date Recorded Body height Body mass index (BMI) Body weight Body temperature Provider Name and Address Organization Details Last Updated DateTime 08/25/2023 152.4 cm 27.3 kg/m2 71024.93 g 98.1 [degF] Jayla Hardy [facility] & [place] 08/25/2023 14:46:14 Date Recorded Body height Body mass index (BMI) Body weight Body temperature Provider Name and Address Organization Details Last Updated DateTime 07/14/2023 152.4 cm 35.2 kg/m2 30022.63 g 98 [degF] Meliza Medina [facility] & [place] 07/14/2023 10:36:03 Social History None recorded. Functional Status Question Answer Note LastModified by Organization D etails LastModified Time What is your level of alcohol consumption? None [email or web address] Information not available 07/14/2023 Mental Status None recorded. Family History Relationship Description Onset Age of this Age Resolved Age Notes LastModified by Organization Details LastModified Time Brother Family history unknown Not available 2022 10:32:50 Sister Family history unknown [email or web address] Not available 2022 10:32:50 Mother Family history unknown [email or web address] Not available 2022 10:32:56 Medical History No medical history recorded. Gynecological HistoryNo gynecological history recorded. Obstetrics History GPAL:G 0 P 0 0 0 0 Past Encounters Encounter ID Performer Location Encounter Start Date Encounter Closed Date Diagnosis/Indication Diagnosis SNOMED-CT Code Diagnosis ICD10 Code Diagnosis Note [id number] Humphrey Mcnulty Jr, MD [facility] [place] [address] 5 07/14/2023 10:07:14 07/14/2023 10:56:38 Multiple renal cysts 027440472 N28.1 Patient with bilateral renal cyst on ultrasound dated June 25, 2023. Largest cyst on the left side was 5.4 cm with a septation. largest cyst on the right side is 5.1 cm. Patient is complainin g of bilateral flank pain. She has undergone previous right-side d cyst aspiration with relief of discomfort . We will proceed with a CT scan with IV contrast To evaluate the cysts more fully. She will return to the office for discussion after the scan. We discussed Tylenol for the flank discomfort until then. [id number] Humphrey Mcnulty Jr, MD [facility] [address] 5 08/25/2023 14:40:55 08/25/2023 15:26:12 Simple renal cyst 80007323 N28.1 Patient with bilateral simple cysts. Review of her CT shows 5 cm cysts bilaterall y. They are parapelvic in we discussed cyst aspiration . We will set her up for cyst aspiration at [facility]. She has benefitted from previous cyst aspiration . [id number] Humphrey Mcnulty Jr, MD [facility] [address] [address] 10/01/2023 09:53:24 10/01/2023 10:54:00 Multiple renal cysts [id number] N28.1 Patient with bilateral renal cyst on ultrasound dated June 25, 2023. patient underwent right renal cyst aspiration September 12. She was disappoint ed with the procedure and the lack of confidence by the physician human resources office assistant performing the procedure. She was disappoint ed that no sclerosing agent was able to be done to prevent re-formati on and that the left renal cyst can not be done due to his location. She remains symptomati c especially on the left side. I will refer her to the radiologis t at [facility] for considerat ion of aspiration of the left renal cyst as she is very symptomati c on that side. Health Concerns Section Related Observation LastModified by Organization Detai ls LastModified Time None Recorded Concern Status LastModified by Organization Details LastModified Time None Recorded Advance Directives Directive None Recorded Payers Insurance Date Sequence Insurance Name Policy Number Policy Martini Covered Member ID Martini Member ID Guarantor Name 10/04/2023 1 [place] SAHIL ZIMMER [facility] [id number] Gregorio Sun [id number] Arlen Sun Notes Date Note Type Note Provider Name and Address Organization Details Recorded Time 07/14/2023 text/html Patient is a 52-year-old white female with a history of bilateral renal cyst. I saw her previously at [facility] couple of years ago. She is having some bilateral flank pain and her primary care physician ordered a renal ultrasound that was performed on June 25. Kidneys are of normal size. There was no evidence of stones or hydronephrosis. There are multiple cysts with the largest on the right measuring 5.1 cm and the largest on the left side measuring 5.4 cm with a septation. Patient did undergo percutaneous cyst aspiration with sclerosis in 2018 at [facility]. She states that this did help with pain. She started having some left flank pain in April now is worse on both sides. Her renal function is normal with a creatinine of 0.68. She states her blood pressure has been elevated as well recently.Patient also has complaint of urinary urgency with associated leakage. She does drink 3-4 coffees per day. Humphrey Mcnulty Jr, MD [address] [place] [address], [address], [place], [address], [place] - [facility] [place] & [place] 07/14/2023 12:18:48 08/25/2023 text/html patient is a 53-year-old white female with history of bilateral renal cysts. She is had some recent bilateral flank pain and ultrasound had indicated a recurrence of renal cysts bilaterally. CT scan with and without IV contrast was performed showing bilateral simple renal cyst. There were multiple cyst on the right side and 2 on the left. The largest on the right measures 5.3 cm in the largest on the left measured 5.7 cm. There was no evidence of complex cyst. Patient has undergone previous renal cyst aspiration with improvement in pain. She continues to have bilateral flank pain. Humphrey Mcnulty Jr, MD [address], [address], [place], [address], [facility] & [place] 08/25/2023 16:03:03 10/01/2023 text/html patient is a 53-year-old white female with history of bilateral renal cyst. She has had some recent bilateral flank pain an ultrasound had indicated a recurrence of renal cysts bilaterally. CT scan with and without IV contrast was performed showing bilateral simple cysts. There were multiple cyst on the right side and 2 cyst on the left. The largest on the right measured 5.3 cm and the largest on the left was 5.7 cm. Patient has undergone previous renal cyst aspiration with improvement in pain. She did undergo repeat right renal cyst aspiration at [facility] by the physician human resources office assistant. She states that she was not impressed with his knowledge or outcome. he was not able to do the left side as it was too medial to do it safely. She returns today and states that she is still having a little right-sided flank pain but the left-sided flank pain is worse. The aspiration report dated September 07 from [facility] indicated that 50 cc of clear yellow fluid was aspirated from the right kidney. They were not able to do a sclerosing procedure which she was also upset about. Humphrey Mcnulty Jr, MD [address], [address], [place], [address], [facility] & [place] 10/01/2023 16:53:54 OBGyn Episode No OBEpisode recorded.
--- OUTSIDE RECORDS SUMMARY | 2025-02-26 13:41 | XMS_ITS | Patient Health Record ---
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 Name Role Phone Priya Reyez Primary Care Provider Babak Dela Cruz Unavailable [phone] Joceline Martin Unavailable [phone] Allergies Allergen (clinical drug ingredient) Drug/Non Drug [...] Interpretation:Normal Performing Lab: Notes/Report: Test performed by [facility] [address] [place] [address] , [address], [place] [address] Hu Mckeon MD, Aircraft Pneud[employer] Repairer CLIA: [id number] Sodium 140 135-145 mmol/L Potassium 3.9 3.5-5.3 mmol/L Chloride 101 97-108 mmol/L CO2 27 22-32 mmol/L Glucose 80 65-99 mg/dL BUN 15 6-20 mg/dL Creatinine 0.74 0.50-1.00 mg/dL Calcium 9.8 8.6-10.4 mg/dL eGFR by Creatinine 97 >59 mL/min/1.73m2 P-Basic Metabolic Panel (BMP ) (Not yet reviewed by provider) Interpretation:gluc 188 Performing Lab: Notes/Report: Test performed by [facility] [address] [place] [address] , [address], [place] [address] Hu Mckeon MD, Aircraft Pneud[employer] Repairer CLIA: [id number] Sodium 139 135-145 mmol/L Potassium 3.6 3.5-5.3 mmol/L Chloride 102 97-108 mmol/L CO2 25 20-32 mmol/L Glucose 188 65-99 mg/dL BUN 16 6-20 mg/dL Creatinine 0.86 0.50-1.00 mg/dL Calcium 9.8 8.6-10.4 mg/dL eGFR by Creatinine 81 >59 mL/min/1.73m2 Urinalysis - Inhouse Reviewed date:04/19/2024 04:49:26 PM Interpretation: Performing Lab: Notes/Report: Color/Clarity yellow/clear Leuk Neg Nitrite Neg Urobili 3.2 Protein Neg pH 6.0 Blood Neg Sp. Gr. 1.025 Ketone Neg Bili Neg Gluc Neg CBC Venipuncture (in house) Reviewed date:04/19/2024 04:49:16 PM Interpretation: Performing Lab: Notes/Report: wbc 8.2 3.5 - 10 lymph 22.9% 15 - 50 mid 6.7% 2 - 15 gran 70.4% 35 - 80 rbc 4.49 3.5 - 5.5 hgb 13.1 11.5 - 16.5 hct 38.9 35 - 55 mcv 86.6 75 - 100 mch 29.2 25 - 35 mchc 33.6 31 - 38 platlet 380 100 - 400 P-Comprehensive Metabolic Pa jerry (CMP) Reviewed date:04/20/2024 08:33:07 AM Interpretation: Performing Lab: Notes/Report: Test performed by [facility] [address] [place] [address] , [address], [place] [address] Hu Mckeon MD, Aircraft P[employer] Repairer CLIA: [id number] Sodium 140 135-145 mmol/L Potassium 3.9 3.5-5.3 mmol/L Chloride 100 97-108 mmol/L CO2 27 22-32 mmol/L Glucose 123 65-99 mg/dL BUN 17 6-20 mg/dL Creatinine 0.79 0.50-1.00 mg/dL Calcium 10.2 8.6-10.4 mg/dL eGFR by Creatinine 90 >59 mL/min/1.73m2 Protein 7.3 6.0-8.3 g/dL Albumin 4.3 3.5-5.3 g/dL Alkaline Phosphatase 104 35-121 IU/L ALT (SGPT) 18 <5-47 IU/L AST (SGOT) 22 <5-40 IU/L Bilirubin, Total 0.3 <0.2-1.2 mg/dL A/G Ratio 1.4 1.1-2.5 Glycohemoglobin A1c (in hous e) Reviewed date:07/03/2024 04:02:57 PM Interpretation: Performing Lab: Notes/Report: glycohemoglobin 7.3% 5 - 6.5 % P-Microalbumin/Creatinine, R andom Urine Sample Reviewed date:09/05/2024 09:49:23 AM Interpretation:a/c 158 Performing Lab: Notes/Report: Test performed by [facility] [address] [place] [address] , [place] [address] Hu Mckeon MD, Aircraft P[employer] Repairer CLIA: [id number] Albumin/Creatinine Ratio, Urine 158 0-30 ug/m g Microalbumin, Urine, Random 9.5 Creatinine, Urine 60.3 P-Comprehensive Metabolic Pa jerry (CMP) Reviewed date:09/05/2024 09:49:23 AM Interpretation:gluc 311, alk phos 154, a1c 10.5 Performing Lab: Notes/Report: Test performed by [facility] [address] [place] [address] , [place] [address] Hu Mckeon MD, Aircraft P[employer] Repairer CLIA: [id number] Sodium 135 135-145 mmol/L Potassium 4.6 3.5-5.3 mmol/L Chloride 97 97-108 mmol/L CO2 27 22-32 mmol/L Glucose 311 65-99 mg/dL BUN 17 6-20 mg/dL Creatinine 0.79 0.50-1.00 mg/dL Calcium 9.6 8.6-10.4 mg/dL eGFR by Creatinine 90 >59 mL/min/1.73m2 Protein 8.0 6.0-8.3 g/dL Albumin 4.3 3.5-5.3 g/dL Alkaline Phosphatase 154 35-121 IU/L ALT (SGPT) 23 <5-47 IU/L AST (SGOT) 17 <5-40 IU/L Bilirubin, Total 0.2 <0.2-1.2 mg/dL A/G Ratio 1.2 1.1-2.5 Glycohemoglobin A1c (in hous e) Reviewed date:09/05/2024 09:49:23 AM Interpretation: Performing Lab: Notes/Report: glycohemoglobin 10.5% 5 - 6.5 % CBC Venipuncture (in house) Reviewed date:09/05/2024 09:49:23 AM Interpretation: Performing Lab: Notes/Report: wbc 6.5 3.5 - 10 lymph 25.8% 15 - 50 mid 5.5% 2 - 15 gran 68.7% 35 - 80 rbc 4.94 3.5 - 5.5 hgb 14.4 11.5 - 16.5 hct 42.6 35 - 55 mcv 86.1 75 - 100 mch 29.1 25 - 35 mchc 33.7 31 - 38 platlet 301 100 - 400 Glucose (In-House) Reviewed date:09/05/2024 09:49:23 AM Interpretation: Performing Lab: Notes/Report: blood glucose 298 74 - 106 mg/dL Urinalysis - Inhouse Reviewed date:07/03/2024 04:02:43 PM Interpretation: Performing Lab: Notes/Report: Color/Clarity yellow/clear Leuk Neg Nitrite Neg Urobili 3.2 Protein Trace pH 6.0 Blood Neg Sp. Gr. 1.020 Ketone Neg Bili Neg Gluc 1+ Ultrasound : Kidneys, bilate ral Reviewed date:07/24/2024 01:04:54 PM Interpretation:bilateral renal cysts with some decrease in size and some resolution Performing Lab: Notes/Report: bilateral renal cysts with some decrease in size and some resolution Mammogram Reviewed date:12/21/2024 11:37:43 AM Interpretation:Negative Performing Lab: Notes/Report: Negative Reason For Referral Reason poorly controlled di abetes Diagnosis 1 Type 2 diabetes mine itus without complication, without long-term current use of insulin (E11.9) Referral Organization [facility] Referring Provider First Name Priya Sepulveda Referring Provider Last Name Dereje Referring Provider Speciality Family Pra ctice Referred Provider Specialty Endocrinolog y General Notes Belle Cedillo 09/04/19 25 2:25:07 PM > submitted via [facility] website Referral Priority Routine Medications Medication SIG (Take, Route, Frequency, Duration) Notes Start Date End Date Status Atorvastatin Calcium 20 MG 1 tab(s) orally once a day; Duration: 30 days Active Lisinopril-hydroCHLOROth iazide 20-25 MG 1 tablet Orally Once a day; Duration: 90 days Active Wixela Inhub 250-50 MCG/ACT USE ONE INHALATION TWICE DAILY; Duration: 30 Active FreeStyle Rex 2 Sensor - USE DIRECTED CHANGE SENSOR EVERY 14 DAYS; Duration: 28 Active ProAir Digihaler 108 (90 Base) MCG/ACT 2 puff(s) inhaled 4 times a day 04/22/2021 Active metFORMIN HCl ER 500 MG 1 tab(s) Orally twice a day Active CoQ10 100 MG orally once a day Active Trulicity 0.75 MG/0.5ML as directed Subcutaneous 0 09/04/2024 Active Tresiba 100 UNIT/ML 22 units Subcutaneou s each morning Not-Taking Immunizations Vaccine Route Administration Date Status Comme nts Fluzone Quad (6months&older) Unknown 06/17/2023 Pending Tetanus Tdap-Adacel (over 7yrs) IM Intramuscular 11/29/2018 Administered Problems Problem Type SNOMED Code ICD Code Onset Dates Problem Status W/U Status Risk Notes Problem Essential hypertension (28989719) Essential hypertension (I10) Active confirmed Problem Diabetic renal disease (040461374) Type 2 diabetes mellitus with diabetic chronic kidney disease (E11.22) Active confirmed Problem Diabetic renal disease (620526322) Type 2 diabetes mellitus with other diabetic kidney complication (E11.29) Active confirmed Problem Mixed hyperlipidemia (451128208) Mixed hyperlipidemia (E78.2) Active confirmed Problem Localized, primary osteoarthritis of the hand (920345487) Primary osteoarthritis, right hand (M19.041) Active confirmed Problem Localized, primary osteoarthritis of the hand (076383457) Primary osteoarthritis, left hand (M19.042) Active confirmed Problem Long-term current use of insulin (408475764) 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 (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.4) Active confirmed Problem Gastroesophageal reflux disease without esophagitis (728832103) Gastroesophageal reflux disease without esophagitis (K21.9) Active confirmed Problem Carpal tunnel syndrome of right wrist (178185992170258) Carpal tunnel syndrome of right wrist (G56.01) Active confirmed Problem Acute pharyngitis (478050236) Pharyngitis, unspecified etiology (J02.9) Active confirmed Problem Skin sensation disturbance (30591568) Paresthesias in left hand (R20.2) Active confirmed Problem Renal cyst (561835491) Renal cyst (N28.1) Active confirmed Problem Spasm of bladder (299233352) Bladder spasms (N32.89) Active confirmed Problem Type II diabetes mellitus without complication (930249715) Type 2 diabetes mellitus without complication, without long-term current use of insulin (E11.9) Active confirmed Problem Fibrocystic breast changes (97657860) Fibrocystic breast disease (FCBD), unspecified laterality (N60.19) Active confirmed Problem Contracture of palmar fascia (254734959) Dupuytren's contracture of hand (M72.0) Active confirmed Vital Signs Heart Rate 73 /min 02/15/2025 Blood pressure diastolic 80 mm Hg 02/15/2025 Height 60 in 02/15/2025 Blood pressure systolic 140 mm Hg 02/15/2025 Weight 191.8 lbs 02/15/2025 BMI 37.45 kg/m2 02/15/2025 Encounters Encounter Location Date Provider Diagnosis [facility] [address] [place], [place] [id number] 03/23/2024 Babak DelaC ruz Abnormal ECG R94.31 and Type 2 diabetes mellitus without complication, without long-term current use of insulin E11.9 [facility] [address] [place], [place] [id number] 09/04/2024 Priya Reyez Type 2 diabetes mine itus without complication, without long-term current use of insulin E11.9 and Essential hypertension I10 [facility] [address] [place], [place] [id number] 09/29/2024 Priya Reyez Type 2 diabetes mine itus with diabetic chronic kidney disease E11.22 ; detention (current) use of insulin Z79.4 ; Type 2 diabetes mellitus with other diabetic kidney complication E11.29 and Proteinuria, unspecified R80.9 [facility] [address] [place], [place] [id number] 10/27/2024 Priya Reyez Type 2 diabetes mine itus with other diabetic kidney complication E11.29 ; detention (current) use of insulin Z79.4 ; Renal cyst N28.1 and Essential hypertension I10 [facility] [address] [place], [place] [id number] 02/15/2025 Priya Reyez Type 2 diabetes mine itus without complication, without long-term current use of insulin E11.9 ; Essential hypertension I10 ; Type 2 diabetes mellitus with diabetic chronic kidney disease E11.22 and Renal cyst N28.1 [facility] [address] [place], [place] [id number] 04/19/2024 Joceline Crowbelkys Renal cyst N28.1 ; Essential hypertension I10 and Kidney pain N23 [facility] [address] [place], [place] [id number] 07/03/2024 Priya Reyez Type 2 diabetes mine itus without complication, without long-term current use of insulin E11.9 ; Essential hypertension I10 ; Mixed hyperlipidemia E78.2 and Renal cyst N28.1 [facility] [address] [place], [place] [id number] 03/20/2024 Priya Reyez [facility] [address] [place], [place] [id number] 04/20/2024 Joceline Martin [facility] [address] [place], [place] [id number] 07/20/2024 Priya Reyez [facility] [address] [place], [place] [id number] 07/24/2024 Priya Reyez [facility] [address] [place], [place] [id number] 09/05/2024 Priya Reyez [facility] [address] [place], [place] [id number] 10/31/2024 Priya Reyez [facility] [address] [place], [place] [id number] 11/06/2024 Priya Reyez [facility] [address] [place], [place] [id number] 02/21/2025 Priya Reyez Mild persistent asthmatic bronchitis without complication J45.30 [facility] [address] [place] [id number] 02/22/2025 Priya Reyez Assessments Encounter Date Diagnosis (ICD Code) Assessment Notes Treatment Notes Treatment Clinical Notes Section Notes 03/23/2024 Type 2 diabetes mellitus without complication, without long-term current use of insulin (ICD-10 - E11.9) A1c 7.9%, not at goal 03/23/2024 Abnormal ECG (ICD-10 - R94.31) Unclear copy of ECG reviewed, no sign of previous MA, most likely reading error by ECG machine 04/19/2024 Essential hypertension (ICD-10 - I10) BP has improved after the surgery and they have stopped two of her BP medications. Her BP has been normal at home. Will remain off of the medications and continue to monitor BP. 04/19/2024 Renal cyst (ICD-10 - N28.1) 07/03/2024 Type 2 diabetes mellitus without complication, without long-term current use of insulin (ICD-10 - E11.9) 09/04/2024 Essential hypertension (ICD-10 - I10) 09/04/2024 Type 2 diabetes mellitus without complication, without long-term current use of insulin (ICD-10 - E11.9) 09/29/2024 Type 2 diabetes mellitus with diabetic chronic kidney disease (ICD-10 - E11.22) continue current therapy 07/03/2024 Essential hypertension (ICD-10 - I10) 09/29/2024 detention (current) use of insulin (ICD-10 - Z79.4) 10/27/2024 Type 2 diabetes mellitus with other diabetic kidney complication (ICD-10 - E11.29) Current course of treatment reviewed, including pertinent labs and diagnostic imaging. 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 (ICD-10 - Z79.4) 02/15/2025 Type 2 diabetes mellitus without complication, without long-term current use of insulin (ICD-10 - E11.9) 02/21/2025 Mild persistent asthmatic bronchitis without complication (ICD-10 - J45.30) 10/27/2024 Renal cyst (ICD-10 - N28.1) 02/15/2025 Essential hypertension (ICD-10 - I10) 07/03/2024 Mixed hyperlipidemia (ICD-10 - E78.2) 09/29/2024 Type 2 diabetes mellitus with other diabetic kidney complication (ICD-10 - E11.29) 04/19/2024 Kidney pain (ICD-10 - N23) 09/29/2024 Proteinuria, unspecified (ICD-10 - R80.9) 07/03/2024 Renal cyst (ICD-10 - N28.1) 10/27/2024 Essential hypertension (ICD-10 - I10) 02/15/2025 Type 2 diabetes mellitus with diabetic chronic kidney disease (ICD-10 - E11.22) 02/15/2025 Renal cyst (ICD-10 - N28.1) Plan Of Treatment Pending Test Test Name Order Date Ultrasound : Kidneys, bilateral 02/16/20 25 P-Basic Metabolic Panel (BMP) 02/15/2025 Next Appt Details Provider Name:Priya Busby er, 06/22/2025 10:00:00 AM, [address] [facility], [address], [place], [place], [id number], Insurance Providers Payer Name Payer Address Payer Phone Subscriber Number Group Number Insured Name Patient Relationship to Insured Coverage Start Date Coverage End Date [employer] [address] [place] [address] [id number] [id number] [id number] Self - patient is the insured Medical (General) History Medical History History ICD Code hypertension type 2 diabetes asthma dialated eye exam 2018 mammogram 05/2023 Surgical History Surgery Date(Month/Year) C section 06/27/2008 hysterectomy, abdominal 2015 bladder suspension with hysterectomy cholecystectomy, Dr. Wynne 07/2017 eye surgery, [facility] Dr. Lockett 2002 myomectomy 2006 Bilateral renal cyst removal 03/28/24 Hospitalization History Reason Date(Month/Year) [facility]- fever, muscle pain, and headache: COVID positive 06/01/2020
== END 2025-02-26 23:59 | disposition home or self-care (01) ==
LOC: RAD 13:30
PROVIDERS: PCP Family Medicine; Visit Provider Family Medicine
DX: N28.1 Cyst of kidney, acquired (principal)
CPT/HCPCS: 76770